=== PATIENT | female | born 1940 | race Caucasian/White ===

== ENCOUNTER 2018-06-10 18:05 | Outpatient (REF) | payer MEDICARE, OTHER, SELFPAY ==
[2018-06-10 19:33] LABS: Anion Gap 8.3 mmol/L (3-11); BUN 24 mg/dL (7-18); CO2 28.7 mmol/L (21.0-32.0); CREATININE 0.82 mg/dL (0.55-1.02); Calcium 9.3 mg/dL (8.5-10.1); Chloride 104 mmol/L (98-107); Glucose 250 mg/dL (70-100); Potassium 4.3 mmol/L (3.5-5.1); Sodium 141 mmol/L (136-145); TSH 3.09 uIU/mL (0.358-3.74)
== END 2018-06-10 18:25 ==
LOC: NCHCN 18:05
PROVIDERS: Visit Provider Nurse Practitioner Family
DX: E03.9 Hypothyroidism, unspecified (principal); E11.65 Type 2 diabetes mellitus with hyperglycemia
CPT/HCPCS: 80048; 84443

== ENCOUNTER 2019-02-28 09:38 | Emergency (ER) | payer MEDICARE, OTHER, SELFPAY ==
[2019-02-28] VITALS (24 sets, daily range): BP systolic 133–170; BP diastolic 69–116; PULSE 78–95; RESP 13–24; TEMP 36.6–37.1; O2SAT 92–97
--- NOTE | 2019-02-28 09:44 | DI.RAD_ITS ---
EXAM: XR CHEST 2V PA LATERAL INDICATION: Confusion. COMPARISON: No exams were available for comparison TECHNIQUE: 2D digital imaging was performed. 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 There is mild cardiomegaly. Lungs are generally clear and well expanded. No pleural effusion seen. IMPRESSION: No evidence of acute process.
--- NOTE | 2019-02-28 09:49 | NUR.NOTE ---
Nursing Note: pt to ct
--- NOTE | 2019-02-28 09:49 | ED.GENADUL_ITS ---
Discharge Plan Disposition Patient Disposition: HOME Condition: Improving Discharge Details Chief Complaint: AMS/LOC Clinical Impression: Urinary tract infection, Acute dehydration Primary Care Provider: Unknown,Unknown ED Provider: Anthony Guerra Home Meds and New Rx's Prescriptions: New cephalexin 500 mg capsule 500 mg PO TID 7 Days Qty: 21 RF: 0 Continued metformin 850 mg Tablet 850 mg PO BID RF: 0 glipizide 2.5 mg Tablet Extended Release 24hr 2.5 mg PO BID RF: 0 levothyroxine [Synthroid] 112 mcg Tablet 112 mcg PO DAILY RF: 0 Discharge Instructions Instructions: Urinary Tract Infection in Women (ED) Additional Instructions: We will ask our care management team to make urine a follow-up appointment at [place] [facility]. Take antibiotics as prescribed. Continue your regular medications. Return to the any time for reevaluation if you have acute concerns. Home to rest today. Small, frequent sips of fluids to maintain hydration. Medical Decision Making 78-year-old female with day 3 of general confusion that worsened this morning. She presented via EMS from her home in [place]. She arrives afebrile with a pulse of 81, blood pressure 133/77, interactive and pleasant but confused. She does have questionable expressive aphasia, otherwise nonfocal neurologic exam. She does have history of mood disorder in the past. Normal vital signs a temp 36 pulse 81 respirations 18 blood pressure 133/77. Differential diagnosis includes metabolic derangement, dehydration, urinary tract, must exclude acute stroke and patient referred for CT scan of the head which is unremarkable. Urine is notable for glucose 500. She also has mixed cells including bacteria. As above, she had complained of burning with urination to her over the past [address] scan of the head unremarkable for acute process. Patient also underwent MRI which is normal without evidence of infarct. Following fluids, observation, the patient is improved. She requested discharge to home. Discussed admission for further observation with patient and her . They declined this at this time. As she was symptomatic of UTI we will treat her with a course of oral antibiotic. She will follow-up with her primary care in [place] for recheck. Lab Data Lab results reviewed: Yes I reviewed the patient's lab results. Labs: Laboratory Results - last 24 hr 02/28/19 02/28/19 02/28/19 09:49 09:55 09:55 WBC 4.99 RBC 4.56 Hgb 14.0 Hct 41.7 MCV 91.4 MCH 30.7 MCHC 33.6 RDW 13.5 Plt Count 121 L MPV 11.0 Immature Gran % 0.4 Neutrophils % 65.4 Lymphocytes % 22.6 Monocytes % 8.4 Eosinophils % 2.6 Basophils % 0.6 Absolute Neutrophils 3.26 Absolute Lymphocytes 1.13 L Absolute Monocytes 0.42 Absolute Eosinophils 0.13 Absolute Basophils 0.03 Sodium 137 Potassium 4.1 Chloride 101 Carbon Dioxide 25.3 Anion Gap 10.7 BUN 22 H Creatinine 0.94 Estimated GFR/1.73 m2 57.44 Glucose 242 H Calcium 9.1 Magnesium 1.9 Total Bilirubin 0.6 AST 18 ALT 21 Alkaline Phosphatase 65 Troponin I < 0.05 Total Protein 8.1 Albumin 3.9 TSH Cancelled 12.92 H ECG Data Attestation: I personally reviewed and interpreted this ECG (s) as follows: Interpretation: Normal sinus rhythm with a rate of 81, the QRS is narrow, W[place] interval unremarkable, no significant ST segment changes noted. HPI General Mode of arrival: EMS . Date/Time Provider Initiated Documentation: 02/28/19 09:44 . Limitations to Documentation: no limitations . Information obtained by: patient, family and EMS . History of Present Illness 78 year old F presents to the emergency department with the chief complaint of Presents via EMS with her . 2 to 3 days of confusion, worse this am, described as moderate, Quality is described as constant, Patient started experiencing this day(s) and it has been constant. No relieving factors improve symptom(s), No exacerbating factors reported . Patient notes no other symptoms.; denies chest pain, cough, fever/chills and syncope. Patient did receive the following treatments prior to arrival, none Related Data Home Medications Medication Instructions Recorded Confirmed cephalexin 500 mg PO TID 7 Days #21 cap 02/28/19 glipizide 2.5 mg PO BID 02/28/19 02/28/19 levothyroxine [Synthroid] 112 mcg PO DAILY 02/28/19 02/28/19 metformin 850 mg PO BID 02/28/19 02/28/19 Previous Rx's Medication Instructions Recorded cephalexin 500 mg PO TID 7 Days #21 cap 02/28/19 Allergies Allergy/AdvReac Type Severity Reaction Status Date / Time No Known Allergies Allergy Unverified 02/28/19 11:00 Review of Systems Review of Systems Narrative: No fever, fall, recent illness. No chest pain. Recent burning with urination. 6 systems reviewed and otherwise negative [facility] Social History Smoking/Tobacco Use Status: Unknown Substance use type: unknown Additional Social history: unable to assess Exam Narrative Exam Narrative: GEN: awake, alert, pleasant, interactive, confused. HEAD: Normocephalic, atraumatic ENT: Mucous membranes moist, oropharynx unremarkable, External ear exam unremarkable EYES: PERRL, EOMI NECK: Full ROM, no OLGA, no menigismus CHEST/RESP: Nontender, clear to auscultation bilateral, no wheeze/rhonchi/rales CARDIOVASCULAR: RRR, no murmur, rub ji. 2+ Rad pulse bilateral ABDOMEN: Soft, nontender, no mass. +Bowel sounds EXT: Full ROM, no edema, no rash Neuro: Grossly normal neurologic exam, conversant, interactive but confused. Psych: Speech nonfluent
--- NOTE | 2019-02-28 10:02 | DI.CT_ITS ---
EXAM: CT HEAD - STROKE PROTOCOL CLINICAL HISTORY: confusion, ? expressive aphasia. TECHNIQUE: COMPARISON: No exams were available for comparison FINDINGS: Noncontrast cranial CT was performed. There is mild generalized cerebral atrophy and there are mild patchy areas of decreased attenuation in periventricular white matter consistent with microvascular i schemic change. No evidence of acute intracranial hemorrhage mass effect or midline shift. Paranasal sinuses and mastoid air cells are clear as visualized. The orbital and temporal bone struc tures appear intact. IMPRESSION: No evidence of acute intracranial process.
[2019-02-28 10:04] LABS: Abs Immature Grans 0.02 k/cumm (0.0-0.09); Absolute Basophil Count 0.03 k/cumm (0.0-0.2); Absolute Eosinophil Count 0.13 k/cumm (0.0-0.7); Absolute Lymphocyte Count 1.13 k/cumm (1.2-3.4); Absolute Monocyte Count 0.42 k/cumm (0.11-0.7); Absolute Neutrophil Count 3.26 k/cumm (1.2-6.7); Basophils % 0.6; Eosinophils % 2.6; HCT 41.7 % (36.0-46.0); Immature Grans % 0.4; Lymphocytes % 22.6; Mean Corp. HGB Concentration 33.6 g/dL (32.0-36.0); Mean Corpuscular Hemoglobin 30.7 pg (27.0-33.0); Mean Corpuscular Volume 91.4 fL (80-95); Monocytes % 8.4; Neutrophils % 65.4; Platelet Count 121 x1000/uL (130-400); RBC 4.56 m/cumm (4.00-5.20); RBC Distribution Width 13.5 % (11.7-14.6); White Blood Cell Count 4.99 k/cumm (4.4-10.8)
[2019-02-28 10:29] LABS: ALT 21 U/L (14-59); AST 18 U/L (15-37); Albumin 3.9 g/dL (3.4-5.0); Alkaline Phosphatase 65 U/L (46-116); Anion Gap 10.7 mmol/L (3-11); BUN 22 mg/dL (7-18); Bilirubin, Total 0.6 mg/dL (0.2-1.0); CO2 25.3 mmol/L (21.0-32.0); CREATININE 0.94 mg/dL (0.55-1.02); Calcium 9.1 mg/dL (8.5-10.1); Chloride 101 mmol/L (98-107); Estimated GFR 57.44 (mL/min/1.73m2); Glucose 242 mg/dL (70-100); Magnesium 1.9 mg/dL (1.8-2.4); Potassium 4.1 mmol/L (3.5-5.1); Sodium 137 mmol/L (136-145); TSH 12.92 uIU/mL (0.36-3.74); Total Protein 8.1 g/dL (6.4-8.2)
[2019-02-28 10:30] LABS: Troponin I < 0.05 ng/mL (0.00-0.06)
[2019-02-28] MEDS: Normal Saline 1,000 ML 1000 ML IV (10:30)
[2019-02-28] MEDS: Ondansetron 4 MG/2 ML VIAL ×2 (10:30→12:13)
[2019-02-28 10:43] LABS: Bilirubin Negative (Negative); Blood Trace-intact (Negative); Clarity Clear (Clear); Glucose 500 mg/dL (Negative); Ketones 40 mg/dL (Negative); Leukocyte Esterase Negative (Negative); Nitrite Negative (Negative); Specific Gravity 1.015 (1.005-1.025); Urobilinogen 0.2 EU/dL (Up TO 0.2); pH 5.5 (5-8)
[2019-02-28 11:00] LABS: Bacteria Few HPF (Negative); C & S Indicated? No; Casts Negative LPF (Negative); Crystals Negative HPF (Negative); Epithelial Cells Few HPF (Negative); Mucus Negative (Negative); WBC 0-2 HPF (0-5)
[2019-02-28 11:21] LABS: FREE T4 0.98 ng/dL (0.76-1.46)
--- NOTE | 2019-02-28 11:26 | NUR.NOTE ---
Nursing Note: Unable to obtain IV access, additional assistance requested.
--- NOTE | 2019-02-28 12:53 | DI.MRI_ITS ---
EXAM: MR BRAIN WO CLINICAL HISTORY: confusion, ? expressive aphasia. TECHNIQUE: Multiplanar multisequence MRI was performed. COMPARISON: No exams were available for comparison FINDINGS: There is moderate generalized cerebral atrophy and there are multiple areas of abnormal signal in the periventricular white matter consistent with microvascular ischemic change. No other significant si gnal abnormality identified in the brain. The orbital and temporal bone structures appear intact. T here is normal flow void in Ehphcj-an-Bjqkhk vasculature. Diffusion weighted imaging shows no eviden ce of infarction. Susceptibility weighted imaging shows no evidence of intracranial hemorrhage. IMPRESSION: Findings consistent with atrophy and microvascular ischemic change. No acute process.
[2019-02-28] MEDS: Cephalexin 500 MG CAP PO (14:07)
--- NOTE | 2019-02-28 14:59 | NUR.NOTE ---
Nursing Note: pt able to ambulate to car without difficulty.
== END 2019-02-28 15:02 | disposition home or self-care (01) ==
PROVIDERS: Emergency Provider Emergency Medicine
DX: N39.0 Urinary tract infection, site not specified (principal); E86.0 Dehydration
CPT/HCPCS: 36415; 80053; 93005; 96360; 99285; 70450; 70551; 71046; 81003; 81015; 83735; 84439; 84443; 84484; 85025; 93010; 99284; J2405

== ENCOUNTER 2019-03-19 15:32 | Outpatient (REF) | payer MEDICARE, OTHER, SELFPAY ==
[2019-03-19 21:04] LABS: Hemoglobin A1C 10.3 % (4.5-6.2)
[2019-03-19 21:15] LABS: BUN 20 mg/dL (7-18); CREATININE 0.93 mg/dL (0.55-1.02); Calcium 9.2 mg/dL (8.5-10.1); Chloride 100 mmol/L (98-107); Estimated GFR 58.16 (mL/min/1.73m2); Glucose 322 mg/dL (70-100); Potassium 4.2 mmol/L (3.5-5.1); Sodium 138 mmol/L (136-145); TSH 4.98 uIU/mL (0.36-3.74)
== END 2019-03-19 15:52 ==
LOC: NCHCN 15:32
PROVIDERS: Visit Provider Nurse Practitioner Family
DX: E11.65 Type 2 diabetes mellitus with hyperglycemia (principal)
CPT/HCPCS: 80048; 83036; 84443

== ENCOUNTER 2019-04-22 14:25 | Outpatient (REF) | payer MEDICARE, OTHER, SELFPAY ==
[2019-04-22 21:06] LABS: BUN 15 mg/dL (7-18); NT-proBNP 90 pg/mL (<300); TSH 21.21 uIU/mL (0.36-3.74)
== END 2019-04-22 14:45 ==
LOC: NCHCN 14:25
PROVIDERS: PCP Nurse Practitioner Family; Visit Provider Nurse Practitioner Family
DX: R06.02 Shortness of breath (principal); R01.1 Cardiac murmur, unspecified; E03.9 Hypothyroidism, unspecified
CPT/HCPCS: 84520; 82565; 83880; 84443

== ENCOUNTER 2019-05-02 09:51 | Emergency (ER) | payer MEDICARE, OTHER, SELFPAY ==
[2019-05-02 09:58] VITALS: BP 140/70; PULSE 91; RESP 16; TEMP 36.6; O2SAT 97
--- NOTE | 2019-05-02 10:10 | ED.GENADUL_ITS ---
Discharge Plan Disposition Patient Disposition: HOME Discharge Details Chief Complaint: Orthopedic Clinical Impression: Closed fracture of left proximal humerus Primary Care Provider: Thalia Granda ED Provider: Pablo Hester Home Meds and New Rx's Prescriptions: New meloxicam 7.5 mg tablet 7.5 mg PO DAILY Qty: 30 RF: 0 Continued metformin 850 mg Tablet 850 mg PO BID RF: 0 levothyroxine [Synthroid] 112 mcg Tablet 150 mcg PO DAILY RF: 0 furosemide [Lasix] 20 mg Tablet 20 mg PO PRN PRNRF: 0 Discharge Instructions Instructions: Proximal Humerus Fracture (ED) Additional Instructions: Please keep arm in sling and follow-up with orthopedics. Take meloxicam as prescribed. Please take acetaminophen (tylenol) - 650mg every 6 hours by mouth as needed for pain. Please contact your primary care physician to arrange follow-up. Return to the ER for any worsening or new concerning symptoms. Referrals: Ernesto Ferrell MD [ [facility] STAFF PHYSICIAN] - Discharge Data Discharge Date/Time-TO BE ENTERED AT DEPARTURE: 05/02/19 11:01 Medical Decision Making 10:15 --78-year-old female presents with left shoulder pain and swelling after fall on ice last night. Tender and swollen proximal humerus. Concern for proximal humeral fracture. Consider rib fracture as she has had some discomfort on deep inspiration left lateral upper chest. Plan to obtain chest x-ray and x-ray of the left shoulder. 10:42 --x-ray of the left shoulder reviewed and interpreted by me: Proximal humerus fracture. Chest x-ray was interpreted by radiology: No acute cardiopulmonary process. Patient was placed in sling and advised to follow-up with orthopedics. Patient placed on orthopedic follow-up list. Usual and customary discharge instructions were provided. HPI General Mode of arrival: ambulatory . Date/Time Provider Initiated Documentation: 05/02/19 09:57 . Limitations to Documentation: no limitations . Information obtained by: patient and family . HPI Narrative: 78-year-old female presents with chief complaint of left shoulder pain. Patient notes she slipped on ice last night and fell from one step to the ground landing on her left shou lder. She is had pain in her shoulder since the fall. Pain is moderate and worse with any movement of her shoulder. She notes shoulder feels weak. She also hit her left chest and does have some discomfort when she takes a deep inspiration. She denies hip pain. She did not hit her head. No loss of consciousness. No neck or back pain. Related Data Home Medications Medication Instructions Recorded Confirmed levothyroxine [Synthroid] 150 mcg PO DAILY 02/28/19 05/02/19 metformin 850 mg PO BID 02/28/19 05/02/19 furosemide [Lasix] 20 mg PO PRN PRN 05/02/19 05/02/19 meloxicam 7.5 mg PO DAILY #30 tab 05/02/19 Previous Rx's Medication Instructions Recorded meloxicam 7.5 mg PO DAILY #30 tab 05/02/19 Allergies Allergy/AdvReac Type Severity Reaction Status Date / Time No Known Allergies Allergy Unverified 02/28/19 11:00 General Stated Complaint: Orthopedic GARRICK: 4 Review of Systems Cardiovascular Cardiovascular: Denies dyspnea Respiratory Respiratory: Denies dyspnea Musculoskeletal Musculoskeletal: Reports as per HPI Integumentary/Breasts Skin/Breast: Reports other (abrasion left knee) [facility] Social History Smoking/Tobacco Use Status: Never Alcohol Intake: never Drug use: Never Substance use type: does not use Do you feel safe at home: Yes Do you feel safe in your relationship?: Yes Exam Const General: cooperative and no acute distress HENMT Head: normocephalic and atraumatic Mouth: moist mucous membranes Neck Neck: trachea midline and supple Resp Auscultation: clear to auscultation bilaterally, no rales, no rhonchi and no wheezes Cardio Jugular venous pressure: no JVD Rate: regular rate and not tachycardic Rhythm: regular rhythm Pulses: radial pulses present on the left 2+ GI Palpation: soft, not firm, not rigid and nontender Skin Trauma: abrasion (superficial left knee) Neuro General: alert, awake and tone normal Other: Distal left upper extremity sensation and motor intact Extrem General: no edema Left upper extremity: shoulder/upper arm Details: tenderness Location: of the proximal humerus, swelling Location: of the proximal humerus, axillary nerve sensory function normal and abnormal ROM Details: held in an abnormal fashion Details: in ADduction and pain with passive ROM Details: in ABduction Left lower extremity: knee Details: normal ROM; no tenderness and no swelling Course Vital Signs Vital signs: Vital Signs Temperature 36.6 C 05/02/19 09:58 Pulse 91 H 05/02/19 09:58 Respiratory Rate 16 05/02/19 09:58 Blood Pressure 140/70 05/02/19 09:58 Pulse Oximetry 97 05/02/19 09:58 Temperature 36.6 C 05/02/19 09:58 Temperature Source Temporal Artery Scan 05/02/19 09:58 Pulse 91 H 05/02/19 09:58 Respiratory Rate 16 05/02/19 09:58 Respiratory Effort Non-Labored 05/02/19 09:58 Blood Pressure 140/70 05/02/19 09:58 Pulse Oximetry 97 05/02/19 09:58 Oxygen Delivery Method Room Air 05/02/19 09:58 Oxygen Flow Rate 0 05/02/19 09:58
[2019-05-02] MEDS: Ibuprofen 600 MG TAB PO (10:14)
[2019-05-02] MEDS: Acetaminophen 325 MG TAB 650 MG PO (10:14)
--- NOTE | 2019-05-02 10:18 | DI.RAD_ITS ---
EXAM: XR SHOULDER LT COMPLETE 2+V CLINICAL HISTORY: pain, fall TECHNIQUE: COMPARISON: No exams were available for comparison FINDINGS: Three views were obtained. There is a moderately comminuted fracture of the proximal humerus with mo derate displacement. Humeral head is subluxed inferiorly at the glenohumeral joint but there is no f rank dislocation. No other fracture identified. IMPRESSION:
--- NOTE | 2019-05-02 10:26 | DI.RAD_ITS ---
EXAM: XR CHEST 1V IN DI DEPT CLINICAL HISTORY: left rib pain, fall from standing TECHNIQUE: COMPARISON: XR CHEST 2V PA LATERAL from 02/28/2019 XR SHOULDER LT COMPLETE 2+V from 05/02/2019 FINDINGS: Heart is not enlarged. Lungs are clear. No pleural effusion seen on this frontal film. There appea rs to be a large retrocardiac hiatus hernia. Note is made of proximal left humeral fracture as noted radiographs of the shoulder. Humeral head ap pears subluxed inferiorly. IMPRESSION: No evidence of acute intrapulmonary process.
== END 2019-05-02 11:01 | disposition home or self-care (01) ==
LOC: ER 11:14
PROVIDERS: Emergency Provider Student in an Organized Health Care Education/Training Program; PCP Nurse Practitioner Family
DX: S42.202A Unspecified fracture of upper end of left humerus, initial encounter for closed fracture (principal); R07.81 Pleurodynia; W00.0XXA Fall on same level due to ice and snow, initial encounter
CPT/HCPCS: 23600; 99284; 71045; 73030; 99282; L3650

== ENCOUNTER 2019-05-14 10:02 | Outpatient (CLI) | payer MEDICARE, OTHER, SELFPAY ==
--- NOTE | 2019-05-14 10:22 | DI.RAD_ITS ---
EXAM: XR SHOULDER LT COMPLETE 2+V INDICATION: f/u. COMPARISON: XR SHOULDER LT COMPLETE 2+V from 05/02/2019 TECHNIQUE: 2D digital imaging was performed. FINDINGS: There has been no significant change in alignment of the proximal left humeral fracture since 9. No new fracture or dislocation is present.
== END 2019-05-14 10:22 ==
PROVIDERS: PCP Nurse Practitioner Family; Visit Provider Student in an Organized Health Care Education/Training Program
DX: S42.202A Unspecified fracture of upper end of left humerus, initial encounter for closed fracture (principal); W10.9XXA Fall (on) (from) unspecified stairs and steps, initial encounter
CPT/HCPCS: 99203; 99214; 73030

== ENCOUNTER 2019-06-11 10:46 | Outpatient (CLI) | payer MEDICARE, OTHER, SELFPAY ==
--- NOTE | 2019-06-11 10:12 | DI.RAD_ITS ---
EXAM: XR SHOULDER LT COMPLETE 2+V INDICATION: L prox humerus fx. COMPARISON: XR CHEST 1V IN DI DEPT from 05/02/2019 XR SHOULDER LT COMPLETE 2+V from 05/02/2019 TECHNIQUE: 2D digital imaging was performed. FINDINGS: There has been some interval increased healing of the comminuted fracture of the humeral head. There is inferior subluxation of the humeral head with respect to the glenoid, unchanged.
== END 2019-06-11 11:06 ==
PROVIDERS: PCP Nurse Practitioner Family; Referring Provider Nurse Practitioner Family; Visit Provider Orthopaedic Surgery
DX: S42.202D Unspecified fracture of upper end of left humerus, subsequent encounter for fracture with routine healing (principal); X58.XXXD Exposure to other specified factors, subsequent encounter
CPT/HCPCS: 99213; 73030

== ENCOUNTER 2019-07-03 12:19 | Inpatient (IN) | payer MEDICARE, OTHER, SELFPAY ==
[2019-07-03] VITALS (32 sets, daily range): BP systolic 111–174; BP diastolic 68–94; PULSE 78–101; RESP 13–28; TEMP 36.6–37; O2SAT 92–99
--- NOTE | 2019-07-03 12:41 | W.ED.GENAD ---
Discharge Plan Disposition Patient Disposition: [facility] INPATIENT Condition: Serious Discharge Details Chief Complaint: CVA/TIA Clinical Impression: Acute CVA (cerebrovascular accident) Admit Date/Time: 07/03/19 15:46 Admit Provider: Lakhwinder Amador Attending Provider: Lakhwinder Amador Primary Care Provider: Thalia Granda ED Provider: Molly Anglin Discharge Instructions Activity:: Activity as Tolerated Equipment/Supplies:: No Equipment Needed Diet:: Carb Counting Discharge Orders Discharge Orders: Discharge Order (Routine); Ordered 07/05/19 Ordered By: Marie Mendoza Discharge Data Discharge Date/Time-TO BE ENTERED AT DEPARTURE: 07/03/19 16:45 Medical Decision Making Patient is a RHD 78 year old female presenting today with c/c of right hand weakness. States that she awoke this morning and had difficulty pushing herself to a standing position with the right arm to get out of bed. She states that she then had difficulty eating as she did not have the dexterity to hold a fork. She denies any altered sensation. No neck pain. No trauma. No pain in the extremity. No headache. Her reports that he felt that her gait was off slightly which patient did not report noticing. He states that typically she walks with the house very well unassisted. Patient denies any chest pain, shortness of breath. Reports overall feeling quite well but continues to notice this weakness particularly doing fine motor movements of the right hand, NIH score of 1 based on the ataxia in the right upper extremity. Patient is having difficulty with finger-nose and all fine motor movements with the right. She has no pronator drift on the side, no sensory deficits. Proximal muscles are strong on the side. EKG was obtained and reviewed by Dr. Hester. Patient's in sinus tachycardia with a rate of 102. No acute ischemic changes are noted. Patient will be sent over from [place] stroke protocol as well as CTA of head and neck. Consulted with Dr. Martinez, he reviewed CT and CTA. No acute abnormalities noted. CXR without acute abnormality. Labs reviewed, significant for glucose of 310. On review of labs, this is baseline for the patient. Reviewed note from primary care. Patient does have history of hypertension, pedal edema, heart murmur, type 2 diabetes poorly controlled, hypothyroidism, chronic low back pain. Will consult with Dr. Hayes. She advised beginning the patient on aspirin. Advised patient will need admission for continued evaluation with MRI, echo continue monitoring. Discussed this plan with the patient was in agreement. Consulted the hospitalist who agrees to admission for CVA. HPI General Mode of arrival: wheelchair. Date/Time Provider Initiated Documentation: 07/03/19 12:29. Limitations to Documentation: no limitations. Information obtained by: patient, family () and RN notes reviewed. History of Present Illness 78 year old F presents to the emergency department with the chief complaint of right arm weakness, described as moderate (deficit with fine motor in right hand), and is localized to the right and upper extremity. Patient started experiencing this hour(s) (awoke with symptoms at 0800) and it has been constant. No relieving factors improve symptom(s), No exacerbating factors reported . Patient notes weakness; denies chest pain, cough, diaphoresis, fever/chills, headaches, loss of appetite, nausea/vomiting, rash and shortness of breath. Patient did receive the following treatments prior to arrival, none Related Data Home Medications Medication Instructions Recorded Confirmed levothyroxine [Synthroid] 150 mcg PO DAILY 02/28/19 07/03/19 metformin 850 mg PO BID 02/28/19 07/03/19 furosemide [Lasix] 20 mg PO PRN PRN 05/02/19 07/03/19 meloxicam 7.5 mg PO DAILY #30 tab 05/02/19 07/03/19 aspirin 81 mg PO DAILY #30 tab 07/05/19 atorvastatin [Lipitor] 40 mg PO QPM #15 tab 07/05/19 Previous Rx's Medication Instructions Recorded meloxicam 7.5 mg PO DAILY #30 tab 05/02/19 aspirin 81 mg PO DAILY #30 tab 07/05/19 atorvastatin [Lipitor] 40 mg PO QPM #15 tab 07/05/19 Allergies Allergy/AdvReac Type Severity Reaction Status Date / Time No Known Allergies Allergy Unverified 07/03/19 12:28 General Stated Complaint: CVA/TIA GARRICK: 2 Review of Systems Constitutional Constitutional: Reports as per HPI, Denies chills, Denies fatigue, Denies fever(s), Denies frequent falls, Denies headache(s), Denies snoring and Denies weakness Eyes Eyes: Reports as per HPI, Denies blurry vision, Denies change in vision and Reports photophobia ENT Ears, Nose, Mouth, and Throat: Denies vertigo, Denies headache(s) and Denies neck pain Cardiovascular Cardiovascular: Reports as per HPI, Denies chest pain, Denies lightheadedness, Denies radiating jaw, neck or arm pain, Denies dyspnea and Denies dyspnea on exertion Respiratory Respiratory: Reports as per HPI, Denies chest congestion, Denies cough, Denies dyspnea, Denies dyspnea on exertion, Denies snoring, Denies stridor and Denies wheezing Gastrointestinal Gastrointestinal: Reports as per HPI, Denies abdominal pain, Denies change in bowel habits, Denies nausea and Denies vomiting Musculoskeletal Musculoskeletal: Reports as per HPI, Denies back pain, Denies myalgias, Denies muscle cramps, Denies neck pain and Denies numbness Integumentary/Breasts Skin/Breast: Reports as per HPI and Denies rash Neurologic Neurologic: Reports as per HPI, Denies abnormal movements, Denies abnormal speech, Denies behavioral changes, Denies confusion, Denies vertigo, Denies frequent falls, Denies headache(s), Denies focal weakness, Denies numbness, Denies sensory deficit and Denies weakness Psychiatric Psychiatric: Denies behavioral changes and Denies confusion Endocrine Endocrine: Denies fatigue Allergic/Immunologic Allergic/Immunologic: Denies wheezing [facility] Medical History Diabetes type 2, controlled (Acute) Fracture of proximal humerus (Acute 05/01/19) Hypothyroidism (Chronic) Social History Smoking/Tobacco Use Status: Never Alcohol Intake: never Drug use: Never Substance use type: does not use Current gender identity: female Do you feel safe at home: Yes Do you feel safe in your relationship?: Yes Exam Const General: cooperative, healthy appearing, uncomfortable, no acute distress, well developed and well groomed Nutritional Appearance: average body habitus and well nourished Orientation: alert, awake and oriented x3 HENMT Head: normal to inspection, no palpable skull fracture, normocephalic and atraumatic Ears: hearing grossly normal bilaterally, external ears normal and TM's normal bilaterally General nose exam: external nose normal Mouth: oral mucosae normal and moist mucous membranes Throat: posterior oropharynx normal Eyes General: appearance normal, both eyes and all related structures Alignment and Position: alignment normal Periorbital: periorbital findings normal Eyelids: eyelids normal Sclera: sclerae normal Cornea: corneas normal Pupils: PERRL EOM: EOM intact bilaterally Neck Neck: normal visual inspection, full ROM, no lymphadenopathy and no meningeal signs Resp Effort & Inspection: normal respiratory effort, able to speak in complete sentences and no respiratory distress Auscultation: clear to auscultation bilaterally, no rales, no rhonchi and no wheezes Cardio Rate: regular rate Rhythm: regular rhythm Heart Sounds: S1 normal and S2 normal GI Inspection: normal to inspection and non-distended Palpation: soft, no hepatosplenomegaly, not firm, no guarding, not rigid and nontender Percussion: normal to percussion Auscultation: normal bowel sounds Back/Spine/Pelvis Cervical Spine: normal cervical lordosis and cervical ROM normal Skin General skin exam: no rashes or lesions noted Neuro General: alert, awake and oriented x3 Cranial Nerves: CN's II-XI intact bilaterally Cognition: normal cognition Speech: speech normal Gait: normal gait Motor: muscle tone normal throughout, strength 5/5 throughout, no pronator drift, no movement abnormalities noted and no fasciculations Sensory Exam: no sensory deficits noted DTR's: Rt Triceps: 2+, Lt Triceps: 2+, Rt Biceps: 2+, Lt Biceps: 2+, Rt Brachioradialis: 2+, Lt Brachioradialis: 2+, Rt Patellar: 2+, Lt Patellar: 2+, Rt Ankle: 2+ and Lt Ankle: 2+ Plantar Reflexes: Downgoing: bilateral Coordination: [id number] test abnormal (unable to complete on the right side) and [id number] test normal Extrem General: normal to inspection, normal capillary refill, no pedal edema and no calf tenderness Psych Appearance: grossly normal and well kempt Mental Status: mental status grossly normal Speech and Movement: speech and movement normal Course Vital Signs Vital signs: Vital Signs Temperature 36.6 C 07/03/19 12:23 Pulse 99 H 07/03/19 12:23 Respiratory Rate 16 07/03/19 12:23 Blood Pressure 156/81 H 07/03/19 12:23 Pulse Oximetry 98 07/03/19 12:23 Temperature 36.6 C 07/03/19 12:23 Temperature Source Skin 07/03/19 12:23 Pulse 99 H 07/03/19 12:23 Respiratory Rate 16 07/03/19 12:23 Respiratory Effort 07/03/19 12:40 Blood Pressure 156/81 H 07/03/19 12:23 Pulse Oximetry 98 07/03/19 12:23 Oxygen Delivery Method Room Air 07/03/19 12:23 Oxygen Flow Rate 0 07/03/19 12:23 Pain Level 0 07/03/19 12:23
[2019-07-03 12:56] LABS: Abs Immature Grans 0.01 k/cumm (0.0-0.09); Absolute Basophil Count 0.02 k/cumm (0.0-0.2); Absolute Eosinophil Count 0.18 k/cumm (0.0-0.7); Absolute Monocyte Count 0.47 k/cumm (0.11-0.7); Absolute Neutrophil Count 3.51 k/cumm (1.2-6.7); Basophils % 0.4; Eosinophils % 3.3; HCT 40.5 % (36.0-46.0); HGB 13.3 g/dL (12.0-15.5); Immature Grans % 0.2 %; Lymphocytes % 23.7; Mean Corp. HGB Concentration 32.8 g/dL (32.0-36.0); Mean Corpuscular Volume 91.4 fL (80-95); Mean Platelet Volume 10.9 fL (8.0-11.0); Monocytes % 8.6; Neutrophils % 63.8; Platelet Count 150 x1000/uL (130-400); RBC 4.43 m/cumm (4.00-5.20); RBC Distribution Width 13.2 % (11.7-14.6); White Blood Cell Count 5.49 k/cumm (4.4-10.8)
[2019-07-03 13:05] LABS: Prothrombin Time 9.7 sec (9.3-11.0)
--- NOTE | 2019-07-03 13:06 | DI.CT_ITS ---
EXAM: CT BRAIN NECK CTA CLINICAL HISTORY: RUE weakness, awoke with symptoms TECHNIQUE: COMPARISON: No exams were available for comparison FINDINGS: Preliminary noncontrast cranial CT shows no evidence of acute intracranial hemorrhage, mass effect, o r midline shift. There is mild generalized cerebral atrophy. The orbital and temporal bone structur es appear intact. CT angiography of cervical cranial region was performed with intravenous infusion of 100 cc of Omnipa que 350 visualized lung apices are clear. Visualized aortic arch and pulmonary arterial circulation unremarkable. There is mild atheromatous calcified plaque in the carotid bifurcations and proximal i nternal carotid arteries bilaterally, no evidence of stenosis. Otherwise internal carotid arteries e xtra cranially appear normal. Intracranially the internal carotid arteries show mild atheromatous calcified plaque in the cavernous portions without significant stenosis. No evidence of aneurysm or dissection. Vertebral arteries and basilar artery appear normal with no evidence stenosis, aneurysm, or dissectio n. Anterior, middle, and posterior cerebral arteries are unremarkable with no evidence of aneurysm, sten osis, or dissection. Left posterior cerebral artery is supplied mainly across the posterior communicating artery. IMPRESSION: No evidence of acute intracranial process. Essentially negative craniocervical CT a with minimal ath eromatous plaque noted in the carotid bifurcations and cavernous portions of the internal carotid art eries bilaterally.
[2019-07-03 13:12] LABS: ALT 24 U/L (14-59); AST 17 U/L (15-37); Albumin 3.8 g/dL (3.4-5.0); Alkaline Phosphatase 93 U/L (46-116); Anion Gap 6.9 mmol/L (3-11); BUN 22 mg/dL (7-18); Bilirubin, Total 0.4 mg/dL (0.2-1.0); CO2 31.1 mmol/L (21.0-32.0); CREATININE 0.85 mg/dL (0.55-1.02); Calcium 8.8 mg/dL (8.5-10.1); Chloride 102 mmol/L (98-107); Glucose 310 mg/dL (74-106); Magnesium 1.8 mg/dL (1.8-2.4); Potassium 4.1 mmol/L (3.5-5.1); Sodium 140 mmol/L (136-145)
--- NOTE | 2019-07-03 13:15 | DI.RAD_ITS ---
EXAM: XR CHEST 2V PA LATERAL CLINICAL HISTORY: CVA TECHNIQUE: COMPARISON: XR CHEST 1V IN DI DEPT from 05/02/2019 FINDINGS: The heart is not enlarged. There is retrocardiac hiatal hernia. Lungs appear clear. No pleural eff usion. IMPRESSION: No evidence of acute intrapulmonary process.
[2019-07-03 13:19] LABS: Troponin I < 0.05 ng/Ml (<0.06)
[2019-07-03] MEDS: Omnipaque 350 MG/ML 100 ML BTL 85 ML IJ (13:20)
[2019-07-03] MEDS: Normal Saline - Diluent 50 ML VIAL IV (13:21)
[2019-07-03] MEDS: Aspirin 325 MG TAB PO (14:49)
[2019-07-03 15:04] LABS: Bilirubin Negative (Negative); Blood Large (Negative); Glucose Negative (Negative); Ketones Negative (Negative); Leukocyte Esterase Negative (Negative); Nitrite Negative (Negative); Urobilinogen 0.2 EU/dL (Up TO 0.2); pH 6.5 (5-8)
[2019-07-03 15:07] LABS: Clarity Sl Cloudy (Clear)
[2019-07-03 15:27] LABS: Bacteria Negative HPF (Negative); C & S Indicated? No; Casts Negative LPF (Negative); Crystals Negative HPF (Negative); Epithelial Cells Rare HPF (Negative); Mucus Negative (Negative); Other Cells Rare Renal (Negative); RBC >50 HPF (0-2); WBC 0-2 HPF (0-5)
[2019-07-03 16:01] LABS: Troponin I < 0.05 ng/Ml (<0.06)
--- NOTE | 2019-07-03 17:00 | W.NEUROCONSU ---
Date of service: 07/03/19 Time of Service: 17:00 Assessment and Plan Assessment and plan (1) Ataxia of right upper extremity: Status: Acute Assessment and plan: Ms. Hughes is a 78 year-old, right-handed woman with a PMH of diabetes who was admitted for: #1. Right arm ataxia with subjective paraesthesias. The concern is for an ischemic stroke. -Check MRI brain w/o -Check TTE with bubble study -Continue telemetry -Check A1c and lipid panel -Continue aspirin 81mg daily for stroke prevention -Start atorvastatin 40mg daily for stroke prevention -Needs OT History of Present Illness History of Present Illness Chief Complaint: ?stroke Narrative: Handedness: right. HPI: Ms. Hughes is a 78 year-old woman with a PMH of type 2 diabetes, hypothyroidism, a recent left humeral fracture, and reported history of mood disorder. She woke this morning around 8am with right hand and arm clumsiness. She describes it as if the arm is not under her control. At the same time, she also describes numbness and tingling in the hand. Both symptoms have improved over time, but continue to persist. Her BP was 156/81. No afib on EKG/tele. She denies any history of palpitations/flutters. She had a CTA head and neck which I was able to review. There is no significant stenosis but she does have a bit of plaque in the carotid bulbs bilaterally. She was seen in the ER in Feb 2019 with AMS attributed to dehydration and a UTI. She underwent a brain MRI at that time which I was also able to review. There were no acute findings with mild cerebral atrophy and chronic white matter changes. She is not on any antiplatelets. Consults Requesting physician: Lakhwinder Amador Review of Systems All systems reviewed & are unremarkable except as noted in HPI and below PFSH Medical History Diabetes type 2, controlled (Acute) Fracture of proximal humerus (Acute 05/01/19) Hypothyroidism (Chronic) Social History Smoking/Tobacco Use Status: Never Alcohol Intake: never Drug use: Never Substance use type: does not use Current gender identity: female Do you feel safe at home: Yes Do you feel safe in your relationship?: Yes Visit Medication and Allergies Active Medications Generic Name Dose Route Start Last Admin Trade Name Freq PRN Reason Stop Dose Admin IV Miscellaneous Supplies 1 each 07/03/19 12:45 IV DIRECTED DARVIN IV Miscellaneous Supplies 1 each 07/03/19 16:00 IV DIRECTED DARVIN Iohexol 85 ml 07/03/19 13:30 07/03/19 13:20 Omnipaque 350 IJ 08/02/19 23:59 85 ml DIRECTED DARVIN Administration Sodium Chloride 0 ml 07/03/19 12:41 Saline Flush 10 Ml Syringe IVP PRN PRN Sodium Chloride 50 ml 07/03/19 13:30 07/03/19 13:21 Saline 50 Ml Diluent Vial IV 50 ml .FOR DI USE DARVIN Administration Sodium Chloride 0 ml 07/03/19 15:46 Saline Flush 10 Ml Syringe IVP PRN PRN Allergies No Known Allergies Allergy (Unverified 07/03/19 12:28) Exam Narrative Exam Narrative: Physical Exam: Gen: Patient of apparent stated age, NAD Head and face: no facial or cranial abnormalities Neck: Supple, no meningismus, no occipital tenderness CV: RRR, no murmur Resp: CTA B/L Abd: soft, nontender, nondistended Ext: Mild bilateral LE edema. No clubbing or cyanosis. No bony deformity. Neuro Exam: Language: fluency, naming, repetition, and comprehension intact; Mental Status: AAOx3, current events intact, fund of knowledge intact; wandering attention Speech: no dysarthria Cranial nerves: Funduscopy: not performed CN II: visual ghosh intact CN III, IV, : extraocular movements intact, no nystagmus, pupils symmetric and reactive to light CN V: face sensation intact to LT and PP CN VII: no facial asymmetry noted CN VIII: hearing intact bilaterally CN IX, X: palate rises symmetrically CN XI: trapezius/SCM 5/5 bilaterally CN XII: protrudes tongue symmetrically Sensory: intact to LT, PP and joint position in all extremities; reduced vibration in the toes bilaterally; Motor: bulk and tone intact. Fine motor movements reduced bilaterally. No pronator drift on the right (left not tested due to recent fracture). Strength 5/5 throughout the RUE and bilateral LE including the deltoids, biceps, triceps, wrist extensors, hip flexors, knee flexors, knee extensors, ankle flexors, and ankle extensors. LUE not tested due to recent fracture. Reflexes: 2+ at the biceps, triceps, and brachioradialis; absent at the patella and achilles tendons bilaterally; toes neutral bilaterally; Coordination: FTN with mild RUE ataxia; HTS intact bilaterally Gait: deferred Results Last Vital Signs Temp 36.7 C 07/03/19 16:52 Pulse 82 07/03/19 16:52 Resp 16 07/03/19 16:52 BP 148/80 H 07/03/19 16:52 Pulse Ox 97 07/03/19 16:52 Labs Result diagrams: 07/03/19 12:40 07/03/19 12:40 Labs: Laboratory Results - last 24 hr 07/03/19 07/03/19 07/03/19 12:40 12:40 12:40 WBC 5.49 RBC 4.43 Hgb 13.3 Hct 40.5 MCV 91.4 MCH 30.0 MCHC 32.8 RDW 13.2 Plt Count 150 MPV 10.9 Immature Gran % 0.2 Neutrophils % 63.8 Lymphocytes % 23.7 Monocytes % 8.6 Eosinophils % 3.3 Basophils % 0.4 Absolute Neutrophils 3.51 Absolute Lymphocytes 1.30 Absolute Monocytes 0.47 Absolute Eosinophils 0.18 Absolute Basophils 0.02 PT 9.7 INR 1.0 Sodium 140 Potassium 4.1 Chloride 102 Carbon Dioxide 31.1 Anion Gap 6.9 BUN 22 H Creatinine 0.85 Estimated GFR/1.73 m2 >= 60.00 Glucose 310 H Calcium 8.8 Magnesium 1.8 Total Bilirubin 0.4 AST 17 ALT 24 Alkaline Phosphatase 93 Troponin I < 0.05 Total Protein 8.0 Albumin 3.8 Urine Color Urine Clarity Urine pH Ur Specific [place] Urine Protein Urine Ketones Urine Blood Urine Nitrite Urine Bilirubin Urine Urobilinogen Ur Leukocyte Esterase Urine RBC Urine WBC Ur Epithelial Cells Urine Crystals Urine Bacteria Urine Casts Urine Mucus Urine Other Ur Culture Indicated? Urine Glucose 07/03/19 07/03/19 14:37 15:40 WBC RBC Hgb Hct MCV MCH MCHC RDW Plt Count MPV Immature Gran % Neutrophils % Lymphocytes % Monocytes % Eosinophils % Basophils % Absolute Neutrophils Absolute Lymphocytes Absolute Monocytes Absolute Eosinophils Absolute Basophils PT INR Sodium Potassium Chloride Carbon Dioxide Anion Gap BUN Creatinine Estimated GFR/1.73 m2 Glucose Calcium Magnesium Total Bilirubin AST ALT Alkaline Phosphatase Troponin I < 0.05 Total Protein Albumin Urine Color Yellow Urine Clarity Sl cloudy Urine pH 6.5 Ur Specific [place] 1.020 Urine Protein Negative Urine Ketones Negative Urine Blood Large H Urine Nitrite Negative Urine Bilirubin Negative Urine Urobilinogen 0.2 Ur Leukocyte Esterase Negative Urine RBC >50 H Urine WBC 0-2 Ur Epithelial Cells Rare Urine Crystals Negative Urine Bacteria Negative Urine Casts Negative Urine Mucus Negative Urine Other Rare renal Ur Culture Indicated? No Urine Glucose Negative
--- NOTE | 2019-07-03 18:08 | W.PM.HP.N ---
Date of service: 07/03/19 Time of Service: 18:09 Assessment and Plan Assessment and plan (1) Ataxia of right upper extremity: Status: Acute Assessment and plan: Appears to be a cerebrovascular event. She is high risk for cardioembolic stroke. Will place on telemetry. Obtain MRI of the brain without contrast in the a.m. Check echocardiogram with bubble study. We will get a lipid panel check hemoglobin A1c start atorvastatin 80 mg nightly and aspirin 81 mg daily. (2) Diabetes type 2, controlled: Status: Acute Assessment and plan: Blood sugars are high on admission. We will hold the metformin because of dye studies pending. Will place on correction bolus insulin and adjust accordingly. History of Present Illness History of Present Illness Chief Complaint: CVA/right hand ataxia Narrative: 78-year-old woman who woke this morning with right hand ataxia. She says she went to throw the covers off the bed and her hand was not working correctly. She could not hold a cup of coffee. Her noticed that her gait was unstable and she seemed to list to the left. In the emergency room her [id number] testing was abnormal on the right. She went on to have a CT angiogram of the head and neck that was normal. She got started on aspirin. Dr. Carrion saw her from neurology. Review of Systems Narrative: Patient feels she is overall in pretty good health. She is very cautious about falling. She fell April 2019 and fractured her left proximal humerus. She had an episode of altered mental status in February 2019. She otherwise is active and denies any previous cardiac history. No pulmonary problems. [facility] Medical History (Updated 07/03/19 @ 18:12 by Lakhwinder Amador MD) Altered mental status (Acute ~02/2019) Diabetes type 2, controlled (Acute) Fracture of proximal humerus (Acute 05/01/19) Hypothyroidism (Chronic) Social History Smoking/Tobacco Use Status: Never Alcohol Intake: never Drug use: Never Substance use type: does not use Current gender identity: female Do you feel safe at home: Yes Do you feel safe in your relationship?: Yes Meds Home Medications and Allergies Home Medications Medication Instructions Recorded Confirmed Type levothyroxine [Synthroid] 150 mcg PO DAILY 02/28/19 07/03/19 History metformin 850 mg PO BID 02/28/19 07/03/19 History furosemide [Lasix] 20 mg PO PRN PRN 05/02/19 07/03/19 History meloxicam 7.5 mg PO DAILY #30 tab 05/02/19 07/03/19 Rx Allergies Allergy/AdvReac Type Severity Reaction Status Date / Time No Known Allergies Allergy Unverified 07/03/19 12:28 Exam Narrative Exam Narrative: Very pleasant alert and in no apparent distress. Cognitive functioning appears to be normal. She shows no evidence of facial asymmetry. Speech is clear. Thought processes appear normal. 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 There does not appear to be any overall weakness or discoordination. She moves both lower extremities without decrement of function. Heart sounds are regular there is no murmur. Lungs are completely clear on the right and left. Abdomen is soft nontender no HSM is detected. The lower extremities are warm and well perfused. Results Imaging Additional studies: CTA HEAD /NECK CLINICAL HISTORY: RUE weakness, awoke with symptoms TECHNIQUE: COMPARISON: No exams were available for comparison FINDINGS: Preliminary noncontrast cranial CT shows no evidence of acute intracranial hemorrhage, mass effect, or midline shift. There is mild generalized cerebral atrophy. The orbital and temporal bone structures appear intact. CT angiography of cervical cranial region was performed with intravenous infusion of 100 cc of Omnipaque 350 visualized lung apices are clear. Visualized aortic arch and pulmonary arterial circulation unremarkable. There is mild atheromatous calcified plaque in the carotid bifurcations and proximal internal carotid arteries bilaterally, no evidence of stenosis. Otherwise internal carotid arteries extra cranially appear normal. Intracranially the internal carotid arteries show mild atheromatous calcified plaque in the cavernous portions without significant stenosis. No evidence of aneurysm or dissection. Vertebral arteries and basilar artery appear normal with no evidence stenosis, aneurysm, or dissection. Anterior, middle, and posterior cerebral arteries are unremarkable with no evidence of aneurysm, stenosis, or dissection. Left posterior cerebral artery is supplied mainly across the posterior communicating artery. IMPRESSION: No evidence of acute intracranial process. Essentially negative craniocervical CT a with minimal atheromatous plaque noted in the carotid bifurcations and cavernous portions of the internal carotid arteries bilaterally. CXR FINDINGS: The heart is not enlarged. There is retrocardiac hiatal hernia. Lungs appear clear. No pleural effusion. IMPRESSION: No evidence of acute intrapulmonary process. Labs Result diagrams: 07/03/19 12:40 07/03/19 12:40 Labs: Laboratory Results - last 24 hr 07/03/19 07/03/19 07/03/19 12:40 12:40 12:40 WBC 5.49 RBC 4.43 Hgb 13.3 Hct 40.5 MCV 91.4 MCH 30.0 MCHC 32.8 RDW 13.2 Plt Count 150 MPV 10.9 Immature Gran % 0.2 Neutrophils % 63.8 Lymphocytes % 23.7 Monocytes % 8.6 Eosinophils % 3.3 Basophils % 0.4 Absolute Neutrophils 3.51 Absolute Lymphocytes 1.30 Absolute Monocytes 0.47 Absolute Eosinophils 0.18 Absolute Basophils 0.02 PT 9.7 INR 1.0 Sodium 140 Potassium 4.1 Chloride 102 Carbon Dioxide 31.1 Anion Gap 6.9 BUN 22 H Creatinine 0.85 Estimated GFR/1.73 m2 >= 60.00 Glucose 310 H Calcium 8.8 Magnesium 1.8 Total Bilirubin 0.4 AST 17 ALT 24 Alkaline Phosphatase 93 Troponin I < 0.05 Total Protein 8.0 Albumin 3.8 Urine Color Urine Clarity Urine pH Ur Specific [place] Urine Protein Urine Ketones Urine Blood Urine Nitrite Urine Bilirubin Urine Urobilinogen Ur Leukocyte Esterase Urine RBC Urine WBC Ur Epithelial Cells Urine Crystals Urine Bacteria Urine Casts Urine Mucus Urine Other Ur Culture Indicated? Urine Glucose 07/03/19 07/03/19 14:37 15:40 WBC RBC Hgb Hct MCV MCH MCHC RDW Plt Count MPV Immature Gran % Neutrophils % Lymphocytes % Monocytes % Eosinophils % Basophils % Absolute Neutrophils Absolute Lymphocytes Absolute Monocytes Absolute Eosinophils Absolute Basophils PT INR Sodium Potassium Chloride Carbon Dioxide Anion Gap BUN Creatinine Estimated GFR/1.73 m2 Glucose Calcium Magnesium Total Bilirubin AST ALT Alkaline Phosphatase Troponin I < 0.05 Total Protein Albumin Urine Color Yellow Urine Clarity Sl cloudy Urine pH 6.5 Ur Specific [place] 1.020 Urine Protein Negative Urine Ketones Negative Urine Blood Large H Urine Nitrite Negative Urine Bilirubin Negative Urine Urobilinogen 0.2 Ur Leukocyte Esterase Negative Urine RBC >50 H Urine WBC 0-2 Ur Epithelial Cells Rare Urine Crystals Negative Urine Bacteria Negative Urine Casts Negative Urine Mucus Negative Urine Other Rare renal Ur Culture Indicated? No Urine Glucose Negative Last Vital Signs Temp 36.7 C 07/03/19 16:52 Pulse 82 07/03/19 16:52 Resp 16 07/03/19 16:52 BP 148/80 H 07/03/19 16:52 Pulse Ox 97 07/03/19 16:52
[2019-07-03] MEDS: Pravastatin 20 MG TAB 80 MG PO (19:53)
[2019-07-04 00:23] VITALS: BP 147/77; PULSE 95; RESP 18; TEMP 36.7; O2SAT 95
[2019-07-04 03:47] VITALS: BP 148/75; PULSE 92; RESP 18; TEMP 36.3; O2SAT 96
[2019-07-04] MEDS: Levothyroxine 150 MCG TAB PO (06:43)
[2019-07-04 07:23] VITALS: BP 145/82; PULSE 86; RESP 18; TEMP 36.1; O2SAT 95
[2019-07-04 07:50] LABS: Hemoglobin A1C 8.5 % (3.8-5.6)
[2019-07-04 07:51] LABS: Calculated LDL 116 mg/dL (<100); Cholesterol 186 mg/dL (<200); HDL Cholesterol 49 mg/dL (40-60); Triglyceride 106 mg/dL (<150)
[2019-07-04] MEDS: Aspirin E.C. 81 MG TABEC PO (08:12)
[2019-07-04] MEDS: Insulin Aspart 300 UNITS/3 ML PEN SC ×3 (08:21→17:44)
--- NOTE | 2019-07-04 09:00 | DI.US_ITS ---
APPROVED REPORT EXAM: Comprehensive 2D, Doppler, and color-flow Echocardiogram Patient Location: In-Patient Environmental Field Services Technician: Yumiko Wright RDCS (AE) Rhythm: NSR Indications: CVA Echo Enhancing Agent Indication: CVA, ? cardioembolic Agent(s) / Amount(s) Used: Agitated Saline 30.0 cc Comments: LUIS Carroll pushed bubbles per hospital policy/ protcol through existing 20G iv in RAC. guru ent consented to bubble study. bubbles ordered by DR. Amador. Conclusion Left Ventricle : The left ventricle is normal size. The left ventricular systolic function is normal . The left ventricular ejection fraction is within the normal range. Asymmetric septal thickening is noted. The posterior wall thickness is normal. The septal thickness is moderately increased. There is normal LV segmental wall motion. There is evidence of impaired relaxation. LVEF is estimated to be 6 5-70%. Right Ventricle : The right ventricle is normal size. The right ventricular systolic function appears normal. Atria : The left atrium size is normal. The right atrium size is normal. Saline bubble contrast intra venous injection does not demonstrate PFO. Aortic Valve : Aortic valve is trileaflet. There is focal annular sclerosis No aortic regurgitation i s present. There is no aortic valvular stenosis. Mitral Valve : The mitral valve is normal in structure. There is no mitral valve regurgitation noted. No evidence of mitral valve stenosis. Tricuspid Valve : The tricuspid valve is not well visualized. Trace tricuspid regurgitation. Great Vessels : IVC is normal in size and collapses >50% with inspiration. Estimated RVSP is 15-18 m mHg. There is no prior echocardiogram available for comparison. Wall motion Left Ventricle The left ventricle is normal size. The left ventricular systolic function is normal. The left ventric ular ejection fraction is within the normal range. Asymmetric septal thickening is noted. The posteri or wall thickness is normal. The septal thickness is moderately increased. There is normal LV segment al wall motion. There is evidence of impaired relaxation. LVEF is estimated to be 65-70%. Right Ventricle The right ventricle is normal size. The right ventricular systolic function appears normal. Atria The left atrium size is normal. The right atrium size is normal. Saline bubble contrast intravenous i njection does not demonstrate PFO. Aortic Valve Aortic valve is trileaflet. There is focal annular sclerosis There is no aortic valvular stenosis. No aortic regurgitation is present. Mitral Valve The mitral valve is normal in structure. No evidence of mitral valve stenosis. There is no mitral janine ve regurgitation noted. Tricuspid Valve The tricuspid valve is not well visualized. Trace tricuspid regurgitation. Pulmonic Valve Pulmonic valve is not well visualized. Trace to mild pulmonic regurgitation. Great Vessels The aortic root is mildly dilated. The ascending aorta size is mildly dilated. IVC is normal in size and collapses >50% with inspiration. Estimated RVSP is 15-18 mmHg. Pericardium There is no pericardial effusion. 2D Dimensions IVSd 1.30 cm F: 0.6-1.0 LV EDV A2C 66.3 mL PWd 0.90 cm F: 0.6 - 1.0 LV EDV A4C 25.2 mL LVDd 3.90 cm F: 3.8 - 5.2 LA Area A4C 18.19 cm2 LVDs 2.25 cm F: 2.2 - 3.5 EF AP4 67.9 % Aortic Root 3.55 cm F: 2.7 - 3.3 EF AP2 82.1 % RA Area A4C 15.73 cm2 EF BP 76.3 % LVOT 2.00 cm (M/F) 1.5-2.5 IVC 1.87 cm Ascending Aorta 3.30 cm F: 2.3 - 3.1 TAPSE 1.96 cm (M/F) <1.7 LVEF (Teich) 73.9 % LVEF (Blake's) 76.29 % F: 54 - 74 LV Volume 32.56 mL F: 46 - 106 LV Volume Index 16.87 mL/m2 F: 29 - 61 FS 42.25 % LV Diastology MV E' medial 0.045 (>0.07 m/s) E/A Ratio 0.7 LV E/e MED 13.65 (<14) TR Peak Velocity 1.96 m/s MV E' lateral 0.055 (>0.1 m/s) LV E/e LAT 11.20 (<14) LA vol/ BSA A4C s A-L 26.7 mL/m2 Aortic Valve LVOT Area 3.17 cm2 AoV Area Vmax 2.00 cm2 LVOT Vmax 1.03 m/s AoV Area/ BSA (Vmax) 1.03 cm2/m2 LVOT Mean Darnell. 0.78 m/s ROYAL Mean Darnell. 2.19 cm2 LVOT Peak Gr. 4.2 mmHg ROYAL Mean Darnell. Index 1.13 cm2/m2 LVOT Mean Gr. 2.6 mmHg LVOT VTI 0.205 m AoV Vmax 1.63 (0.5-1.3 m/s) AoV Mean Darnell. 1.13 m/s AoV Peak Grad 10.6 mmHg LVOT SV 65.00 mL AoV Mean Grad 5.7 (<5 mmHg) AoV VTI 0.305 (0.18-0.25 m) AoV Area VTI 2.13 (2.5-4.5 cm2) AoV Area/ BSA (VTI) 1.10 cm/m2 Mitral Valve MV E Max Darnell. 0.62 (0.4-1.3 m/s) RVOT Peak Gr. 2.74 mmHg MV A Velocity 0.90 (0.4-1.3 m/s) RVOT Mean Gr. 1.90 mmHg E/A Ratio 0.68 MV Decel. Time 127 (160-240 msec) MV PHT 37 msec MVA PHT 5.95 cm2 PV Peak Velocity 1.12 (0.5-1.5 m/s) RVOT Peak Darnell. 0.83 m/s RVOT VTI 0.133 m Tricuspid Valve TR P. Gradient 15.2 mmHg TV Regurg Vmax 1.96 m/s RAP Estimate 3.00 mmHg RVSP 18.3 mmHg
[2019-07-04] MEDS: Normal Saline Flush 10 ML SYR IVP (09:56)
--- NOTE | 2019-07-04 10:10 | PT.INIE ---
Date of service: 07/04/19 Time of Service: 08:18 PT Notes Visit Reasons: Cerebrovascular accident Physical Therapy Inpatient Initial Evaluation Date: 07/04/2019 Referring Doctor: Lakhwinder Amador M.D. PT Orders: PT CONSULT: Fall Safety Assessment; CVA? Precautions: Fall. Standard. Activity as tolerated. Patient Profile/Admitting Diagnosis: Pt is a 78-year-old female that presented to the ER on 07/02/2019 for ataxia of her right upper extremity. She was admitted for ataxia of the right upper extremity and diabetes mellitus type II. PMHX: Medical History (Updated 07/03/19 @ 18:12 by Lakhwinder Amador MD) Altered mental status (Acute ~02/2019) Diabetes type 2, controlled (Acute) Fracture of proximal humerus (Acute 05/01/19) Hypothyroidism (Chronic) Social History/Home Situation: Pt lives at home with her , Timmy. One step into the breeze way and one step up into the house. There are two steps into the kitchen. Notes there are 14 steps down to the cellar where her laundry room is. She states is the one that does the laundry in the house and has to be able to get into the cellar. Equipment Owned/DME: cane Subjective: Pt reports that she is feeling much better today than she was three days ago. She states that she came to the hospital yesterday because her right hand was very shaky and she had spilled her coffee which has resolved. Notes that she no longer has any tingling in her right fingers. Denies difficulty swallowing. She reports only having one fall in the past 12 months, on 2018. Fell onto her left side and fractured the ?ball? of her upper arm. She states she believes she had also broken a rib during that fall because she had been bruised along her side. Per OT, the pt cares for her with Parkinson?s disease. Objective: General Observation: Telemonitor in place. Mental Status: alert and oriented x4 Pain: 0/10 ROM: Right Upper Extremity: Shoulder Flexion WFL. Shoulder abduction WFL. Elbow flexion WFL. Wrist flexion WFL. Opening and closing of hand WFL. Left Upper Extremity: Shoulder Flexion 30-40 degrees and painful AROM. Shoulder abduction WFL. Elbow flexion WFL. Wrist flexion WFL. Opening and closing of hand WFL. Right Lower Extremity: Hip flexion WFL. Hip abduction WFL. Knee flexion WFL. Ankle dorsiflexion WFL. Ankle plantarflexion WFL. Left Lower Extremity: Hip flexion WFL. Hip abduction WFL. Knee flexion WFL. Ankle dorsiflexion WFL. Ankle plantarflexion WFL. Strength: Right Upper Extremity: Shoulder flexors 5/5. Shoulder abductors 5/5. Elbow flexors 5/5. Elbow extensors 5/5. Security Control Assessor strong. Left Upper Extremity: Shoulder flexors 2+/5. Shoulder abductors 5/5. Elbow flexors 5/5. Elbow extensors 5/5. Security Control Assessor strong. Right Lower Extremity: Hip flexors 5/5. Hip abductors 5/5. Knee flexors 5/5. Knee extensors 5/5. Ankle dorsiflexors 5/5. Ankle plantarflexors 5/5. Left Lower Extremity: Hip flexors 5/5. Hip abductors 5/5. Knee flexors 5/5. Knee extensors 5/5. Ankle dorsiflexors 5/5. Ankle plantarflexors 5/5. Sensation: Intact as to pain and pressure on bilateral lower extremities. Bed Mobility/Transfers: Rolling independent Supine to sit independent Sit to supine independent Sit to stand supervision Stand to sit supervision Bed to chair supervision Chair to bed supervision Gait: Pt was able to ambulate 15 feet without the use of an assistive device, full weightbearing. Supervision provided by PT and PT student. Reciprocal gait pattern. Unremarkable. Balance: Static Sitting: Normal Dynamic Sitting: Normal Static Standing: Good Dynamic Standing: Good Coordination: Pt was able to perform [id number]-wy-[id number], olmd-tw-antrbvn-finger, hdis-nh-qmrs, and slow, alternating movement without difficulty. No ataxia of the right upper extremity observed during PT evalaution. Special Tests: Mobility Limitations Standardized Measure [facility]-PAC 6 clicks Basic Mobility Inpatient Short Form: Raw Score: 23% CMS Score: 11% deficit Four-Stage Balance Test: Pt was able to maintain feet together for greater than 15 seconds, but unable to progress any further with testing without loss of balance. Informed Consent/Education: Patient instructed in purpose of PT consult and plan of care. Assessment: Pt is a 78-year-old female that presented to the ER on 07/02/2019 for ataxia of her right upper extremity. She was admitted for ataxia of the right upper extremity and diabetes mellitus type II. Pt presents with impairment level findings and functional limitations as listed below. She demonstrated adequate coordination bilaterally with no apparent ataxia of the right upper extremity observed. Strength and sensation appear to be intact bilaterally. Patient presents with clinical signs and symptoms consistent with current/admitting diagnoses that have resulted to mobility limitations, gait instability, and generalized weakness as demonstrated by the following impairment level findings: 1. Decreased strength to L UE shoulder major muscle groups 2. Impaired standing balance 3. Impaired activity tolerance 4. Limitation of joint range of motion in left shoulder Impairments are contributing to the following functional limitations: 1. Increased dependence with transfers 2. Inability to safely ambulate without assistive device and physical assistance 3. Increase completion time for mobility ADL performance 4. Increased fall risk 5. Inability to negotiate steps alone safely Patient is assessed as a 47878 moderate complexity based on the following: History: Pt is a 78-year-old female that presented to the ER on 07/02/2019 for ataxia of her right upper extremity. She was admitted for ataxia of the right upper extremity and diabetes mellitus type II. Presents with impairment level findings and functional limitations as listed above. Examination: Demonstrable impairment in strength, balance, and range of motion with underlying impairments and functional limitations as documented above Presentation: Evolving Decision Makin moderate complexity Goals: Goals X1 week 1. Sit-Stand independent 2. Stand-Sit independent 3. Bed-Chair independent 4. Chair-Bed independent 5. Independent gait on level surface with use of least restrictive device for at least 300 feet without report of pain nor dyspnea 6. Independent stair negotiation while holding onto bilateral rails for at least 15 steps without report of pain nor dyspnea 7. Independent with home exercise program 8. Good static and dynamic standing balance/tolerance Plan of Care/Treatment Plan: 1-2x/day, 7 days/week x 1 week. Plan of care has been reviewed with the PEDIATRIC OCCUPATIONAL THERAPIST providing the service under Physical Therapy direction. Initiate Physical Therapy intervention for strengthening, bed mobility, transfers, gait, stairs, balance training, use of assistive device. DISCHARGE RECOMMENDATIONS: Discharge to home with cane to assist with balance when ambulating. Recommend outpatient physical therapy for remaining impairments of left shoulder. TREATMENT CODE/TIME: 45479 x 22 minutes beginning at 8:18 A.M. Thank you very much for this referral. Yanira Branch, SPT Doctor of Physical Therapy Student [facility] Supervision provided by Alma Rosa Gould PT, DPT, CLT [facility] [place], [place]
--- NOTE | 2019-07-04 11:06 | OT.INIE ---
Occupational Therapy Notes Inpatient Occupational Therapy Evaluation Date: 07/04/19 Referring Doctor:Lakhwinder Amador MD OT Orders: Urgent- Fall Safety Assessment Precautions: Fall, Standard PATIENT PROFILE/ADMITTING DIAGNOSIS: Pt is a 78 year old female who was admitted through the ER on 07/03/19 for CVA/TIA, (R) hand weakness, Ataxia (R) UE and DM 2. Past Medical History: (Updated 07/03/19 @ 18:12 by Lakhwinder Amador MD) Altered mental status (Acute ~02/2019) Diabetes type 2, controlled (Acute) Fracture of proximal humerus (Acute 05/01/19) Hypothyroidism (Chronic) Social History/Home Situation: [place] lives [place] with her who she takes care of. She states that she is (I) at baseline and he relies on her for driving, meals, laundry, (A) with his ADLs/IADLs and taking care of the home. She states that she does not have any services in the home and feels that she was (I) even with proximal (L) humeral fx. She is not receptive to services at this time. She states that they have a sone who lives in [place]. She has a home there and a storage shed with more of her stuff. Her was a handicrafts teacher and she (A) him for many years. Her laundry is in her basement and she states that she has 14 steps. Equipment owned/DME: Shower chair, raised toilet, grab bars. SUBJECTIVE: Pt was sitting in bed when OT arrived. She was agreeable to OT session and very emotional about this happening to her. She states that she had a humeral fx in April which she is seeing Dr. Vizcarra. She states that she has no formal rehab services for this. She lives in [place] and states that she is the caregiver for her . She is emotional that she cannot be cared for her role is to care for others. She is worried about her and feels that she needs to get better. She states that she is worried about her stuff and needs to go through it but has not been able to find motivation to do so. OBJECTIVE: General Observation: Pleasant and emotional, IV (L) UE not connected. Mental Status: A&Ox3 Pain: c/o pain in (L) proximal humerus ROM: RUE AROM WFL L UE Shoulder flexion limited to 90* due to proximal humeral fx from recent fall, elbow WNL, hand/digits and wrist WNL STRENGTH: RUE Shoulder flexion 4/5, bicep 4-/5, tricep 4/5, administrative support assistant is strong (R) > (L) LUE Shoulder flexion 2+/5, bicep 3+/5, tricep 3+/5, administrative support assistant is strong (R) > (L) SENSATION: Intact per pt report in (B) UE. FUNCTIONAL MOBILITY/ADLS: Transfers Supine-sit Min (A) Sit-supine Min (A) Sit-Stand (I) Stand-sit (S) with LOB Bed-Chair (S) Chair-bed (S) with LOB BATHING Sitting on side of bed pt denies performance of bathing routine reporting she is leaving and will shower at home. OT did assess pt functional ROM for performance of bathing which she was able to demonstrate with good technique. She required education of functional safety and not leaning over to quickly. DRESSING Dressing LE Sitting on side of bed with min vc for leg placement able to (I) don and doff (B) socks with good technique. GROOMING Sitting on side of bed (I) with brushing hair, denies teeth at sink TOILETING On toilet LOB when sitting, (I) with toilet hygiene EATING NT BALANCE: Static sitting Normal Dynamic Sitting Normal Static Standing Normal Dynamic Standing Good SPECIAL TESTS: Daily Activity Limitations Standardized Measure [facility] AM -PAC ?6 clicks? Daily Activity Inpatient Short Form: Raw score: 21 Standardized score: 44.27 CMS score: 32.79% INFORMED CONSENT/EDUCATION: Pt instructed in purpose of OT Consult and plan of care. ASSESSMENT: Patient is a 78-year-old female referred to occupational therapy services with diagnosis of CVA/TIA with (R) hand weakness, Ataxia (R) UE, DM 2. Patient presents with clinical signs and symptoms consistent with dx, as demonstrated by the following impairment level findings/functional limitations: Decreased (R) UE strength and weakness, decreased (L) UE due to proximal humeral fx on , LOB when transitioning to sitting, decreased standing tolerance and functional activity tolerance, decreased gross and fine motor control of (L) UE. [facility] score 21 Patient is assessed as a Moderate 18440 complexity based on the following: History: See Above Examination: See functional limitations as noted above Presentation: Evolving Decision Making: AMPAC score 21 GOALS Goals x1 week 1. Transfers LRD (I) 2. Dressing (I) sitting in chair 3. Bathing (I) in shower for UE/LE 4. Toileting (I) on toilet 5. Eating (I) PLAN OF CARE/TREATMENT PLAN: 1x/day, 5 days/ week x 1week Initiate Occupational Therapy Services for bathing, dressing, grooming, toileting, eating, transfer training. DISCHARGE RECOMMENDATIONS Home with services when medically cleared per MD. TREATMENT TIME/MINUTES/CODES 33205, 52004, 40 minutes (07:30) Sharron Thorne OTR/L [facility] [place]
[2019-07-04 11:10] VITALS: BP 143/76; PULSE 90; RESP 17; TEMP 36.6; O2SAT 97
--- NOTE | 2019-07-04 12:14 | PHARADMIT ---
Admission Pharmacy Clinical Review CVA Code Status Full Code Current Weight Wgt-82.5 kg Renally Cleared and Narrow Therapeutic Index Meds CrCl~ 52.1 mL/min Meds-OK QTc Value / Action Taken QTC-458 NA BP Control, Fever BP- 143/76 Tmax- 37.0C Electrolytes reviewed Na-140 K+4.1 Mag- 1.8 DVT Prophylaxis ASA-ec Opiate Usage / Scheduled Bowel Regimen Ordered No Yes Plt/SCr for Heparin / Enoxaparin Plts-150 SCr-0.85 INR for Warfarin inr-1.0 H/H stable, WBC/Bands H&H- 13.3/40.5 WBC- 5.49 Antibiotic appropriateness none Cultures and Sensitivities none Surgical ABX d/c within 24 hr na DM control / Insulin Dosing BG-310 HgA1c- 8.5% Aspart Heart Failure (Check EF%) (ANNA's, B-Block, Diuretics) none IV to PO Switch No Home Meds Reviewed Yes Home Meds Not Ordered Metformin-Held due IV Contrast, Lasix, Meloxicam Comments
--- NOTE | 2019-07-04 12:35 | DI.MRI_ITS ---
EXAM: MR BRAIN WO CLINICAL HISTORY: CVA, right hand ataxia. TECHNIQUE: Multiplanar multisequence MRI was performed. COMPARISON: No exams were available for comparison FINDINGS: MR examination of brain was performed according usual protocol. There is moderate generalized cerebr al atrophy. Periventricular regions of abnormal signal sparing corpus callosum are consistent with m icrovascular ischemic changes. Diffusion-weighted imaging shows questionable very tiny gyral abnorma l signal left parietal, ADC map does not confirm tiny infarct but this could be below the limit of re solution of the ADC map. No other signal abnormality identified in the brain. Some susceptibility w eighted imaging shows no evidence of hemorrhage. There is normal flow void in the [id number]-Ijqsjb v asculature. The orbital and temporal bone structures appear intact. Pituitary appears intact. IMPRESSION: Cerebral atrophy and microvascular ischemic changes. Question miniscule indeterminate area of abnorm al gyral signal high left parietal a could represent small focus of infarction but is not confirmed o n ADC map.
--- NOTE | 2019-07-04 15:17 | CHAPLAIN ---
Ana was talking with Dr. Amador when I stopped in. She is concerned about what she needs to take care of herself because her Souleymane has Parkinson's and she will need to be caring for him eventually. She was teary at times, saying that she knows she needs to prioritize things in he life and she will do whatever she needs to do to deal with her sugar. She seems to have a very determined and discipline approach, although she later told me that it is her who is very disciplined because of his background. She and her met in high school in [place]. He is a java architect. 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 They retired to [place]. This is the second time that Ana has been to [facility] with neurological issues and this is concerning to Ana. She said she felt comfortable talking with Dr. Amador and sharing her concerns with him. She prefers coming to [facility], even thought she lives in [place].
--- NOTE | 2019-07-04 15:18 | PT.INTREAT ---
Date of service: 07/04/19 Time of Service: 15:18 PT Notes Visit Reasons: Cerebrovascular accident 07/04/19 SUBJECTIVE: Ana stating she is feeling significantly better. She has resolves right hand tingling and weakness. She notes she is usually very active but less so since her proximal humerus fracture this past . 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 She notes that she has a cane and a walker at home if necessary. She is receptive to PT in the home so she knows how to become more active. OBJECTIVE: Seated in her chair. Agreeable to PT treatment. TRANSFERS Sit to stand: S Stand to sit: S GAIT Device: SPC Weight bearing: Full Assist: S Distance: 100'x2 STAIRS: Up and down 3-4 steps, 2-6 steps, step over pattern, bilateral rails, S only. THEREX: Instruct pt in HEP for LE strengthening exercises as noted below. 1. HR x 10 2. Sit to stand: x 10 3. LAQ x 10 4. Seated march x 10 5. Standing march x 10 each 6. Hip abduction standing x 10 ASSESSMENT: Tolerates PT well today. She normally does not utilize an assistive device but she felt comfortable with a single point cane today until she feels stronger. She is motivated to get stronger and be more active at home. PLAN: Continue per POC. Treatment time: 30 minutes [id number], [id number] Janelle London PTA
[2019-07-04 15:27] VITALS: BP 142/71; PULSE 87; RESP 18; TEMP 36.6; O2SAT 95
--- NOTE | 2019-07-04 16:01 | W.NUTRFU ---
Date of service: 07/04/19 Time of Service: 16:01 Nutritional Follow up NOTE: Dm consult received. CDE to follow up. Time Spent in Nutritional Counseling and Treatment: 0 time spent face to face
--- NOTE | 2019-07-04 17:50 | PDOC.CMIN ---
Care Management Initial Assess REASON FOR HOSPITALIZATION:: CVA PAST MEDICAL HISTORY/PAST SURGICAL HISTORY:: Diabetes type 2 controlled, Apr 2019 fracture of L proximal humerus, hypothyroidism PREVIOUS FUNCTIONAL STATUS/SOCIAL/FAMILY SUPPORTS:: Ana resides in [place], [place] with her of fifty four years, Timmy Comer. 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 Ana reports their three children reside out of state but her son who lives in [place] comes up every week. She reports having one grandchild in [place]. She reports that Souleymane has Parkinsons and is beginning to decline. He remains busy with a project on the computer. Ana reports having a good natural support system locally and resources when needed. CURRENT FUNCTIONAL STATUS:: Ana was sitting up in the chair, she was weepy when discussing end of life decisions and dealing with her brother, father's and her and Souleymane's estate as well as where she would like to reside ([place]) when Souleymane passes. She shares fears that he will not live another year as he is losing weight and unable to tolerate much food. CM reviews Palliative Care and community based supports, Ana reports feeling confident in knowing how to outreach for additional supports when the time comes. Ana was pleasant in interaction and forthcoming with information. ADVANCE DIRECTIVES:: None on file at [facility]. Has patient been provided with information about the portal?: No Did the patient sign up for the portal?: No CODE STATUS:: Full Code INSURANCE COVERAGE / FINANCIAL ISSUES:: Medicare. [employer] CURRENT HOME/COMMUNITY SERVICES/EQUIPMENT:: No current services or equipment reported. PRIMARY CARE PHYSICIAN:: Lis Brock . POTENTIAL DISCHARGE NEEDS:: PT evaluation, follow up appointments. PATIENT/FAMILY EDUCATION NEEDS:: Review discharge instructions, discuss Ask Me Three. ANTICIPATED BARRIERS TO DISCHARGE:: None identified. TRANSPORTATION:: Via private vehicle with her , and a friend. PLAN:: Ana will return home when ready per MD. She will follow up with her PCP and plan of care as prescribed. Anticipate outpatient PT as recommended. Ana will transport via private vehicle with a friend and her upon discharge.
--- NOTE | 2019-07-04 19:29 | PGE_ITS ---
Date of Service Date of service: 07/04/19 Time of Service: 19:29 Assessment and Plan Assessment and plan (1) Transient ischemic attack: Status: Acute Assessment and plan: The patient appears to have had a transient episode. The MRI does not show a definite area of infarct. That will be reviewed further by neurology. Plan is to continue on aspirin therapy, statin therapy, improved blood sugar control. Continue to work with physical therapy. Patient does not want to do outpatient physical therapy but would consider a home program. (2) Diabetes type 2, controlled: Status: Acute Assessment and plan: Poorly controlled diabetes with a hemoglobin A1c of 8.5%. Patient notes that she stopped her metformin recently because she was so discouraged. She also was not following a diabetic diet. She is committed to improving her compliance. Restart metformin on discharge and consider adding a second agent. Subjective Subjective Interval history since last seen: Patient reports the right hand dysfunction she had on admission has resolved. She no longer has any right-sided weakness. She underwent echocardiogram and brain MRI testing today. Exam Narrative Exam Narrative: On exam she has equal finish cleaner strength right versus left hand. Her sensorium is clear. She has no facial asymmetry. The remainder of her neurologic exam is nonfocal. Objective Objective Clinical Data: Abnormal lab results 07/04/19 07/04/19 Range/Units 06:00 06:00 Hemoglobin A1c 8.5 H (3.8-5.6) % LDL Cholesterol, Calc 116 H (<100) mg/dL Vital Signs Temperature 36.6 C 07/04/19 15:27 Temperature Source Tympanic 07/04/19 15:27 Pulse 87 07/04/19 15:27 Pulse Rhythm Regular 07/04/19 15:49 Pulse 84 07/03/19 16:45 Respiratory Rate 18 07/04/19 15:27 Respiratory Effort Non-Labored 07/04/19 15:49 Respiratory Depth Normal 07/04/19 15:49 Respiratory Pattern Normal 07/04/19 15:49 Blood Pressure 142/71 H 07/04/19 15:27 Blood Pressure Mean 93 07/03/19 16:45 Pulse Oximetry 95 07/04/19 15:27 Oxygen Delivery Method Room Air 07/04/19 15:27 Oxygen Flow Rate 0 07/04/19 15:27 Pain Level 0 07/04/19 15:27 Intake & Output 07/03/19 07/04/1907/04/20 23:59 11:59 23:59 Intake Total 350 / 350 480 / 480 Output Total 450 / 450 800 / 1400 600 / 1400 Balance -100 / -100 -320 / -920 -600 / -920 Weight 82.5 kg 82.5 kg Intake: Oral 350 / 350 480 / 480 Output: Urine 450 / 450 800 / 1400 600 / 1400 Other: Urine Color Yellow Light Lisa Yellow [place] Light Lisa Urine Appearance Clear Clear Clear Mucous Threads Urine Odor Normal Normal Normal Comment Scratch in vagina. Voiding Methods Toilet Toilet Toilet Laboratory Results WBC 5.49 k/cumm (4.4-10.8) 07/03/19 12:40 RBC 4.43 m/cumm (4.00-5.20) 07/03/19 12:40 Hgb 13.3 g/dL (12.0-15.5) 07/03/19 12:40 Hct 40.5 % (36.0-46.0) 07/03/19 12:40 MCV 91.4 fL (80-95) 07/03/19 12:40 MCH 30.0 pg (27.0-33.0) 07/03/19 12:40 MCHC 32.8 g/dL (32.0-36.0) 07/03/19 12:40 RDW 13.2 % (11.7-14.6) 07/03/19 12:40 Plt Count 150 x1000/uL (130-400) 07/03/19 12:40 MPV 10.9 fL (8.0-11.0) 07/03/19 12:40 Immature Gran % 0.2 % 07/03/19 12:40 Neutrophils % 63.8 07/03/19 12:40 Lymphocytes % 23.7 07/03/19 12:40 Monocytes % 8.6 07/03/19 12:40 Eosinophils % 3.3 07/03/19 12:40 Basophils % 0.4 07/03/19 12:40 Absolute Neutrophils 3.51 k/cumm (1.2-6.7) 07/03/19 12:40 Absolute Lymphocytes 1.30 k/cumm (1.2-3.4) 07/03/19 12:40 Absolute Monocytes 0.47 k/cumm (0.11-0.7) 07/03/19 12:40 Absolute Eosinophils 0.18 k/cumm (0.0-0.7) 07/03/19 12:40 Absolute Basophils 0.02 k/cumm (0.0-0.2) 07/03/19 12:40 PT 9.7 sec (9.3-11.0) 07/03/19 12:40 INR 1.0 (0.9-1.1) 07/03/19 12:40 Sodium 140 mmol/L (136-145) 07/03/19 12:40 Potassium 4.1 mmol/L (3.5-5.1) 07/03/19 12:40 Chloride 102 mmol/L (98-107) 07/03/19 12:40 Carbon Dioxide 31.1 mmol/L (21.0-32.0) 07/03/19 12:40 Anion Gap 6.9 mmol/L (3-11) 07/03/19 12:40 BUN 22 mg/dL (7-18) H 07/03/19 12:40 Creatinine 0.85 mg/dL (0.55-1.02) 07/03/19 12:40 Estimated GFR/1.73 m2 >= 60.00 (mL/min/1.73m2) 07/03/19 12:40 Glucose 310 mg/dL (74-106) H 07/03/19 12:40 Hemoglobin A1c 8.5 % (3.8-5.6) H 07/04/19 06:00 Calcium 8.8 mg/dL (8.5-10.1) 07/03/19 12:40 Magnesium 1.8 mg/dL (1.8-2.4) 07/03/19 12:40 Total Bilirubin 0.4 mg/dL (0.2-1.0) 07/03/19 12:40 AST 17 U/L (15-37) 07/03/19 12:40 ALT 24 U/L (14-59) 07/03/19 12:40 Alkaline Phosphatase 93 U/L (46-116) 07/03/19 12:40 Troponin I < 0.05 ng/Ml (<0.06) 07/03/19 15:40 Total Protein 8.0 g/dL (6.4-8.2) 07/03/19 12:40 Albumin 3.8 g/dL (3.4-5.0) 07/03/19 12:40 Triglycerides 106 mg/dL (<150) 07/04/19 06:00 Total Cholesterol 186 mg/dL (<200) 07/04/19 06:00 LDL Cholesterol, Calc 116 mg/dL (<100) H 07/04/19 06:00 HDL Cholesterol 49 mg/dL (40-60) 07/04/19 06:00 Urine Color Yellow (Yellow) 07/03/19 14:37 Urine Clarity Sl cloudy (Clear) 07/03/19 14:37 Urine pH 6.5 (5-8) 07/03/19 14:37 Ur Specific Lawrence 1.020 (1.005-1.025) 07/03/19 14:37 Urine Protein Negative mg/dL (Negative) 07/03/19 14:37 Urine Ketones Negative mg/dL (Negative) 07/03/19 14:37 Urine Blood Large (Negative) H 07/03/19 14:37 Urine Nitrite Negative (Negative) 07/03/19 14:37 Urine Bilirubin Negative (Negative) 07/03/19 14:37 Urine Urobilinogen 0.2 EU/dL (Up TO 0.2) 07/03/19 14:37 Ur Leukocyte Esterase Negative (Negative) 07/03/19 14:37 Urine RBC >50 HPF (0-2) H 07/03/19 14:37 Urine WBC 0-2 HPF (0-5) 07/03/19 14:37 Ur Epithelial Cells Rare HPF (Negative) 07/03/19 14:37 Urine Crystals Negative HPF (Negative) 07/03/19 14:37 Urine Bacteria Negative HPF (Negative) 07/03/19 14:37 Urine Casts Negative LPF (Negative) 07/03/19 14:37 Urine Mucus Negative (Negative) 07/03/19 14:37 Urine Other Rare renal (Negative) 07/03/19 14:37 Ur Culture Indicated? No 07/03/19 14:37 Urine Glucose Negative mg/dL (Negative) 07/03/19 14:37 Objective Narrative Objective Narrative: The brain MRI today showed a question of a left parietal s troke. The echocardiogram showed normal LV function with an EF of 65 to 70%.
[2019-07-04 21:00] VITALS: BP 124/76; PULSE 90; RESP 17; TEMP 36.6; O2SAT 95
[2019-07-05] VITALS: BP 131/81; PULSE 95; RESP 16; TEMP 36.4; O2SAT 94
[2019-07-05] MEDS: Levothyroxine 150 MCG TAB PO (07:00)
[2019-07-05 07:08] VITALS: BP 124/75; PULSE 96; RESP 18; TEMP 36.4; O2SAT 96
[2019-07-05 07:51] LABS: Anion Gap 9.2 mmol/L (3-11); BUN 20 mg/dL (7-18); CO2 27.8 mmol/L (21.0-32.0); Calcium 9.1 mg/dL (8.5-10.1); Chloride 102 mmol/L (98-107); Glucose 226 mg/dL (74-106); Potassium 4.2 mmol/L (3.5-5.1); Sodium 139 mmol/L (136-145)
[2019-07-05] MEDS: Insulin Aspart 300 UNITS/3 ML PEN SC (07:55)
[2019-07-05] MEDS: Aspirin E.C. 81 MG TABEC PO (07:55)
--- NOTE | 2019-07-05 09:50 | DSE_ITS ---
Date of service: 07/05/19 Time of Service: 09:50 DS: Diagnosis Discharge Diagnosis (1) Transient ischemic attack: Start date: 07/05/19 Start time: 09:50 Status: Acute (2) Diabetes type 2, controlled: Status: Acute Discharge Plan Disposition Patient Disposition: HOME Condition: Improving Discharge Details Chief Complaint: CVA/TIA Reason For Visit: CVA Admit Date/Time: 07/03/19 15:46 Admit Provider: Lakhwinder Amador Attending Provider: Lakhwinder Amador Primary Care Provider: Thalia Granda ED Provider: Molly Anglin [facility] Hospital Course Hospital Course: 78-year-old woman admitted from [facility] ED after waking up with right hand ataxia. CTA in ED negative for acute process. Patient admitted to m/s for further management. CXR negative for acute process, MRI revealing Cerebral atrophy and microvascular ischemic changes. Question miniscule indeterminate area of abnormal gyral signal high left parietal a could represent small focus of infarction but is not confirmed on ADC map. Echo with LEVF 65-70%, no PFO, RVSP 15-18. Telemetry revealing SR 70-80%. At this time she is stable with cane and would benefit from cane for ambulation. Lipid panel with HDL 49, LDL 116. Neurology consulted recommends patient continue 81 asa and 40 mg atorvastatin. While in hospital blood glucose improved. Patient would like to know what other options she has regarding glucose control. At this time she will continue metformin but is has caused her loose stool so she will follow up with her PCP to discuss what other options are available. Discussed diet and exercise. She feels well enough to go home she is being discharged home with PT/OT follow up with neurology and follow up with PCP in 1 week. She denies CP, N/V/D, SOB. Home Meds and New Rx's Prescriptions: New atorvastatin [Lipitor] 40 mg Tablet 40 mg PO QPM Qty: 15 RF: 0 aspirin 81 mg Tablet,Delayed Release (Dr/Ec) 81 mg PO DAILY Qty: 30 RF: 0 Continued metformin 850 mg Tablet 850 mg PO BID RF: 0 levothyroxine [Synthroid] 112 mcg Tablet 150 mcg PO DAILY RF: 0 furosemide [Lasix] 20 mg Tablet 20 mg PO PRN PRNRF: 0 meloxicam 7.5 mg tablet 7.5 mg PO DAILY Qty: 30 RF: 0 Discharge Instructions Instructions: Carotid Artery Disease (DC), Ischemic Stroke (DC), Stroke (DC), Effects of a Stroke (DC) Additional Instructions: Take metformin until you follow up with your PCP. Take atrovastatin at night, report to your PCP if you have any cramping or muscle pain Follow the ADA diet and exercise daily to lower A1C along with your medications Follow up with your PCP in 1 week, Follow up with Neurology. Referrals: Perla Carrion MD [ [facility] STAFF PHYSICIAN] - Activity:: Activity as Tolerated Equipment/Supplies:: No Equipment Needed Diet:: Carb Counting Discharge Orders Discharge Orders: Discharge Order (Routine); Ordered 07/05/19 Ordered By: Marie Mendoza DS: Summary Status at Discharge Functional status at discharge: uses cane/walker Overall status at discharge: patient is progressing back to baseline Mental Status: mental status grossly normal Speech and Movement: speech and movement normal Mood: congruent mood Affect: normal affect Exam Const General: cooperative, healthy appearing, comfortable and no acute distress HENMT Head: normal to inspection Eyes Pupils: PERRL EOM: EOM intact bilaterally Neck Neck: normal visual inspection Carotids: normal carotid upstroke Lymphatic: no lymphadenopathy noted Chest Chest: normal inspection of the chest Resp Effort & Inspection: normal respiratory effort Auscultation: clear to auscultation bilaterally Cardio Jugular venous pressure: no JVD Rate: regular rate Rhythm: regular rhythm Heart Sounds: S1 normal and S2 normal GI Inspection: normal to inspection Back/Spine/Pelvis Back: no CVA tenderness Skin General skin exam: no rashes or lesions noted Neuro General: alert, awake and oriented x3 Cognition: normal cognition Psych Mental Status: mental status grossly normal Speech and Movement: speech and movement normal Mood: congruent mood Affect: normal affect Attitude: cooperative DS: Data Vitals/I&O Vitals and I&O: Vital Signs Temperature 36.4 C L 07/05/19 07:08 Temperature Source Skin 07/05/19 07:08 Pulse 96 H 07/05/19 07:08 Pulse Rhythm Regular 07/05/19 00:00 Pulse 84 07/03/19 16:45 Respiratory Rate 18 07/05/19 07:08 Respiratory Effort Non-Labored 07/05/19 00:00 Respiratory Depth Normal 07/05/19 00:00 Respiratory Pattern Normal 07/05/19 00:00 Blood Pressure 124/75 07/05/19 07:08 Blood Pressure Mean 93 07/03/19 16:45 Pulse Oximetry 96 07/05/19 07:08 Oxygen Delivery Method Room Air 07/05/19 07:08 Oxygen Flow Rate 0 07/05/19 07:08 Pain Level 0 07/04/19 21:00 Intake & Output 07/04/19 07/04/19 07/05/19 11:59 23:59 11:59 Intake Total 480 / 880 400 / 880 200 / 200 Output Total 800 / 1400 600 / 1400 1300 / 1300 Balance -320 / -520 -200 / -520 -1100 / -1100 Weight 82.5 kg 82.5 kg Intake: Oral 480 / 880 400 / 880 200 / 200 Output: Urine 800 / 1400 600 / 1400 1300 / 1300 Other: Urine Color Light Lisa Yellow Light Lisa Light Lisa Urine Appearance Clear Clear Clear Urine Odor Normal Normal Normal Voiding Methods Toilet Toilet Toilet Data Completed and Pending Completed studies during hospitalization [Text1]: FINDINGS: Preliminary noncontrast cranial CT shows no evidence of acute intracranial hemorrhage, mass effect, or midline shift. There is mild generalized cerebral atrophy. The orbital and temporal bone structures appear intact. CT angiography of cervical cranial region was performed with intravenous infusion of 100 cc of Omnipaque 350 visualized lung apices are clear. Visualized aortic arch and pulmonary arterial circulation unremarkable. There is mild atheromatous calcified plaque in the carotid bifurcations and proximal internal carotid arteries bilaterally, no evidence of stenosis. Otherwise internal carotid arteries extra cranially appear normal. Intracranially the internal carotid arteries show mild atheromatous calcified plaque in the cavernous portions without significant stenosis. No evidence of aneurysm or dissection. Vertebral arteries and basilar artery appear normal with no evidence stenosis, aneurysm, or dissection. Anterior, middle, and posterior cerebral arteries are unremarkable with no evidence of aneurysm, stenosis, or dissection. Left posterior cerebral artery is supplied mainly across the posterior communicating artery. IMPRESSION: No evidence of acute intracranial process. Essentially negative craniocervical CT a with minimal atheromatous plaque noted in the carotid bifurcations and cavernous portions of the internal carotid arteries bilaterally. Exam(s) a RAD:XR chest 2V PA & lateral EXAM: XR CHEST 2V PA LATERAL CLINICAL HISTORY: CVA TECHNIQUE: COMPARISON: XR CHEST 1V IN DI DEPT from 05/02/2019 FINDINGS: The heart is not enlarged. There is retrocardiac hiatal hernia. Lungs appear clear. No pleural effusion. IMPRESSION: No evidence of acute intrapulmonary process. Patient Location: In-Patient Processing Technician: Yumiko Wright RDCS (AE) Rhythm: NSR Indications: CVA Echo Enhancing Agent Indication: CVA, ? cardioembolic Agent(s) / Amount(s) Used: Agitated Saline 30.0 cc Comments: LUIS Carroll pushed bubbles per hospital policy/ protcol through existing 20G iv in RAC. patient consented to bubble study. bubbles ordered by DR. Amador. Conclusion Left Ventricle : The left ventricle is normal size. The left ventricular systolic function is normal. The left ventricular ejection fraction is within the normal range. Asymmetric septal thickening is noted. The posterior wall thickness is normal. The septal thickness is moderately increased. There is normal LV segmental wall motion. There is evidence of impaired relaxation. LVEF is estimated to be 65-70%. Right Ventricle : The right ventricle is normal size. The right ventricular systolic function appears normal. Atria : The left atrium size is normal. The right atrium size is normal. Saline bubble contrast intravenous injection does not demonstrate PFO. Aortic Valve : Aortic valve is trileaflet. There is focal annular sclerosis No aortic regurgitation is present. There is no aortic valvular stenosis. Mitral Valve : The mitral valve is normal in structure. There is no mitral valve regurgitation noted. No evidence of mitral valve stenosis. Tricuspid Valve : The tricuspid valve is not well visualized. Trace tricuspid regurgitation. Great Vessels : IVC is normal in size and collapses >50% with inspiration. Estimated RVSP is 15-18 mmHg. There is no prior echocardiogram available for comparison. Exam(s) a MRI:MR brain wo EXAM: MR BRAIN WO CLINICAL HISTORY: CVA, right hand ataxia. TECHNIQUE: Multiplanar multisequence MRI was performed. COMPARISON: No exams were available for comparison FINDINGS: MR examination of brain was performed according usual protocol. There is moderate generalized cerebral atrophy. Periventricular regions of abnormal signal sparing corpus callosum are consistent with microvascular ischemic changes. Diffusion-weighted imaging shows questionable very tiny gyral abnormal signal left parietal, ADC map does not confirm tiny infarct but this could be below the limit of resolution of the ADC map. No other signal abnormality identified in the brain. Some susceptibility weighted imaging shows no evidence of hemorrhage. There is normal flow void in the [id number] vasculature. The orbital and temporal bone structures appear intact. Pituitary appears intact. IMPRESSION: Cerebral atrophy and microvascular ischemic changes. Question miniscule indeterminate area of abnormal gyral signal high left parietal a could represent small focus of infarction but is not confirmed on ADC map. Labs on day of discharge: Labs from last 24 hours 07/05/19 07:30 Sodium 139 Potassium 4.2 Chloride 102 Carbon Dioxide 27.8 Anion Gap 9.2 BUN 20 H Creatinine 0.80 Estimated GFR/1.73 m2 >= 60.00 Glucose 226 H D Calcium 9.1 [facility] Medical History Diabetes type 2, controlled (Acute) Fracture of proximal humerus (Acute 05/01/19) Hypothyroidism (Chronic) Social History Smoking/Tobacco Use Status: Never Alcohol Intake: never Drug use: Never Substance use type: does not use Current gender identity: female Do you feel safe at home: Yes Do you feel safe in your relationship?: Yes
--- NOTE | 2019-07-05 10:09 | PDOC.HHF2F_ITS ---
Home Health Certification Home Health Certification: 1. Encounter Date and Reason I certify that SHOSHANA TAO was seen by Marie Mendoza on 07/05/19 and that I had a [id number] encounter with this patient that meets the physician face to face encounter requirements. 2. Clinical Findings Supporting Skilled Need and Homebound Status I certify that home health services are medically necessary, include either intermittent penitentiary and/or physical/speech therapy, and that this patient is homebound in that absences from the home require considerable and taxing effort and are infrequent or of short duration, or are attributable to the need to receive medical care. [X] (a) Attached documentation from encounter provides clinical findings supporting skilled need and homebound status (including what assistance patient requires to leave the home). The encounter with the patient was in whole, or in part, for the following medical condition, which is the primary reason for home health care: CVA Shelter: Physical Therapy: patient would benefit from PT/OT to increase stability and return to baseline. Speech Therapy: Homebound: Unable to leave house unassissted. 3. Certification and Authentication I certify that I composed the above information based on my clinical judgement relating to this patient's medical condition and, if applicable, clinical findings communicated to me by the NPP or inpatient physician who performed the Home Health Referral. All further orders will be obtained through (Community Based Physician - PCP)
[2019-07-05 11:02] VITALS: PULSE 109
--- NOTE | 2019-07-05 13:18 | PT.INTREAT ---
Date of service: 07/05/19 Time of Service: 09:40 PT Notes Visit Reasons: Cerebrovascular accident Inpatient Physical Therapy Treatment Note [facility] Date: 07/05/19 PRECAUTIONS:Fall, standard and activity to tolerance SUBJECTIVE: Indicated she is going home today. Doing well. OBJECTIVE: PAIN: No complaints of pain offered. BED MOBILITY/TRANSFERS Up in chair upon my arrival to room. Sit-stand: SBA Stand-sit: SBA GAIT Assistive Device: Straight cane Weight bearing: full Assist: SBA/ CGA Distance: 120ft x 2 THEREX: Performed SAQs, seated hip flexion, seated hip abd/add, standing heel raises and sit to stand transfers without hands. STAIRS: Ambulated up / down 3 4inch and 2 6inch stairs utilizing handrail and straight cane. Utilized step over gait with going up stairs and step to gait pattern with going down. CGA with stairs. ASSESSMENT: Tolerated today's session well with good effort given. Did advise patient to utilize walker if feeling off balance. PLAN: To be DC'ed home today by a friend and her . TREATMENT CODE/TIME: 09:40 to 11:10 (30'), [id number]
--- NOTE | 2019-07-05 13:21 | PDOC.CMDIS ---
- If Service Date Differs Date of service: 07/05/19 Time of Service: 13:21 LACE Index Scoring Tool - Questions: Length of Stay (in days): 2 Acuity (Admit via E.D.?): Yes Comorbidities: Diabetes w/o Complication E.D. Visits: 3 - Answers: Total Score: 9 Risk of Readmission: Low Risk Care Management Discharge Reason for Hospitalization: CVA Discharge Plan: Ana will return home with no new services. MD. She will follow up with her PCP and plan of care as prescribed. She will have outpatient PT through [place] [facility]. Ana will transport via private vehicle with a friend and her upon discharge. Patient/Family Education Needs: Discharge plan and follow up, limitations, Ask Me Three. Services Needed at Discharge: Home Health Care Services
--- NOTE | 2019-07-07 07:23 | OT.INDS ---
Date of service: 07/07/19 Time of Service: 07:23 Occupational Therapy Notes Occupational Therapy Inpatient Discharge Summary Date: 07/07/19 for 07/05/19 Dates of Service: 07/04/19 Referring Doctor:Lakhwinder Amador MD OT Orders: Urgent- Fall Safety Assessment Precautions: Fall, Standard PATIENT PROFILE/ADMITTING DIAGNOSIS: Pt is a 78 year old female who was admitted through the ER on 07/03/19 for CVA/TIA, (R) hand weakness, Ataxia (R) UE and DM 2. Past Medical History: (Updated 07/03/19 @ 18:12 by Lakhwinder Amador MD) Altered mental status (Acute ~02/2019) Diabetes type 2, controlled (Acute) Fracture of proximal humerus (Acute 05/01/19) Hypothyroidism (Chronic) Social History/Home Situation: [place] who she takes care of. She states that she is (I) at baseline and he relies on her for driving, meals, laundry, (A) with his ADLs/IADLs and taking care of the home. She states that she does not have any services in the home and feels that she was (I) even with proximal (L) humeral fx. She is not receptive to services at this time. She states that they have a sone who lives in [place]. She has a home there and a storage shed with more of her stuff. Her was a saw operator and she (A) him for many years. Her laundry is in her basement and she states that she has 14 steps. Equipment owned/DME: Shower chair, raised toilet, grab bars. SUBJECTIVE: NT OBJECTIVE: *This document serves as a summary of care, no skilled OT services were provided for this documentation. ROM: RUE AROM WFL L UE Shoulder flexion limited to 90* due to proximal humeral fx from recent fall, elbow WNL, hand/digits and wrist WNL STRENGTH: RUE Shoulder flexion 4/5, bicep 4-/5, tricep 4/5, belt dresser is strong (R) > (L) LUE Shoulder flexion 2+/5, bicep 3+/5, tricep 3+/5, belt dresser is strong (R) > (L) SENSATION: Intact per pt report in (B) UE. FUNCTIONAL MOBILITY/ADLS: Transfers Supine-sit Min (A) Sit-supine Min (A) Sit-Stand (I) Stand-sit (S) with LOB Bed-Chair (S) Chair-bed (S) with LOB BATHING NT DRESSING Dressing LE Sitting on side of bed with min vc for leg placement able to (I) don and doff (B) socks with good technique. GROOMING Sitting on side of bed (I) with brushing hair, denies teeth at sink TOILETING On toilet LOB when sitting, (I) with toilet hygiene EATING NT BALANCE: Static sitting Normal Dynamic Sitting Normal Static Standing Normal Dynamic Standing Good ASSESSMENT: Patient is a 78-year-old female referred to occupational therapy services with diagnosis of CVA/TIA with (R) hand weakness, Ataxia (R) UE, DM 2. Pt was seen for OT consult only on 07/04/19. She was discharged home on 07/05/19 and OT was unable to assess or progress pts goals at this time. GOALS- Unable to assess as pt was seen for OT consult only. 1. Transfers LRD (I) 2. Dressing (I) sitting in chair 3. Bathing (I) in shower for UE/LE 4. Toileting (I) on toilet 5. Eating (I) PLAN OF CARE/TREATMENT PLAN: Pt was transferred home on 07/05/19 when medically cleared per MD. DISCHARGE RECOMMENDATIONS Home with services when medically cleared per MD. TREATMENT TIME/MINUTES/CODES N/A Sharron Thorne OTR/L [facility]
--- NOTE | 2019-07-08 11:28 | INDS_ITS ---
Date of service: 07/08/19 Time of Service: 11:28 PT Notes Visit Reasons: Cerebrovascular accident Physical Therapy Inpatient Initial Evaluation Date: 07/08/2019 Dates of Service: 06/24/2019 through 07/05/2019 This is a clinical summary of care provided on the duration of dates listed above. No charge was made in the completion of this documentation. Referring Doctor: Lakhwinder Amador M.D. PT Orders: PT CONSULT: Fall Safety Assessment; CVA? Precautions: Fall. Standard. Activity as tolerated. Patient Profile/Admitting Diagnosis: Pt is a 78-year-old female that presented to the ER on 07/02/2019 for ataxia of her right upper extremity. She was admitted for ataxia of the right upper extremity and diabetes mellitus type II. PMHX: Medical History (Updated 07/03/19 @ 18:12 by Lakhwinder Amador MD) Altered mental status (Acute ~02/2019) Diabetes type 2, controlled (Acute) Fracture of proximal humerus (Acute 05/01/19) Hypothyroidism (Chronic) Social History/Home Situation: Pt lives at home with her , Timmy. One step into the breeze way and one step up into the house. There are two steps into the kitchen. Notes there are 14 steps down to the cellar where her laundry room is. She states is the one that does the laundry in the house and has to be able to get into the cellar. Equipment Owned/DME: [employer] Objective: General Observation: Telemonitor in place. Pain: 0/10 Vital Signs: NT ROM: Right Upper Extremity: Shoulder Flexion WFL. Shoulder abduction WFL. Elbow flexion WFL. Wrist flexion WFL. Opening and closing of hand WFL. Left Upper Extremity: Shoulder Flexion 30-40 degrees and painful AROM. Shoulder abduction WFL. Elbow flexion WFL. Wrist flexion WFL. Opening and closing of hand WFL. Right Lower Extremity: Hip flexion WFL. Hip abduction WFL. Knee flexion WFL. Ankle dorsiflexion WFL. Ankle plantarflexion WFL. Left Lower Extremity: Hip flexion WFL. Hip abduction WFL. Knee flexion WFL. Ankle dorsiflexion WFL. Ankle plantarflexion WFL. Strength: Right Upper Extremity: Shoulder flexors 5/5. Shoulder abductors 5/5. Elbow flexors 5/5. Elbow extensors 5/5. Medical Laboratory Scientist strong. Left Upper Extremity: Shoulder flexors 2+/5. Shoulder abductors 5/5. Elbow flexors 5/5. Elbow extensors 5/5. Medical Laboratory Scientist strong. Right Lower Extremity: Hip flexors 5/5. Hip abductors 5/5. Knee flexors 5/5. Knee extensors 5/5. Ankle dorsiflexors 5/5. Ankle plantarflexors 5/5. Left Lower Extremity: Hip flexors 5/5. Hip abductors 5/5. Knee flexors 5/5. Knee extensors 5/5. Ankle dorsiflexors 5/5. Ankle plantarflexors 5/5. Sensation: Intact as to pain and pressure on bilateral lower extremities. Bed Mobility/Transfers: Rolling independent Supine to sit independent Sit to supine independent Sit to stand supervision Stand to sit supervision Bed to chair supervision Chair to bed supervision Gait: Pt was able to ambulate 120 feet x2, full weightbearing, using a single point cane. Supervision provided by [employer] Reciprocal gait pattern. Unremarkable. Stairs: Pt was able to ascend and descend 4 inch steps x 3 and 6 inch steps x2 using unilateral railing and cane. Step over pattern up the stairs and step to pattern down the stairs. Balance: Static Sitting: Normal Dynamic Sitting: Normal Static Standing: Good Dynamic Standing: Good Coordination: Pt was able to perform [id number], rihr-be-[id number]-finger, ltuy-qk-stfk, and slow, alternating rhythms without difficulty. No ataxia of the right upper extremity observed. Four-Stage Balance Test: Pt was able to maintain feet together for greater than 15 seconds, but unable to progress any further with testing without loss of balance. Assessment: Pt is a 78-year-old female that presented to the ER on 07/02/2019 for ataxia of her right upper extremity. She was admitted for ataxia of the right upper extremity and diabetes mellitus type II. Pt presented with impairment level findings and functional limitations as listed below. She demonstrated adequate coordination bilaterally with no apparent ataxia of the right upper extremity observed. Strength and sensation appeared to be intact bilaterally. She showed improvements in her tolerance to ambulation as she was able walk a greater distance with requiring a rest break with the use of a single point cane. She would benefit from home physical therapy at this time for continued mobility and strengthening in the home. Patient presented with clinical signs and symptoms consistent with current/admitting diagnoses that have resulted to mobility limitations, gait instability, and generalized weakness as demonstrated by the following impairment level findings: 1. Decreased strength to L UE shoulder major muscle groups 2. Impaired standing balance 3. Impaired activity tolerance 4. Limitation of joint range of motion in left shoulder Impairments continue to contribute to the following functional limitations: 1. Increased dependence with transfers 2. Inability to safely ambulate without assistive device and physical assistance 3. Increase completion time for mobility ADL performance 4. Increased fall risk 5. Inability to negotiate steps alone safely Patient is assessed as a [id number] moderate complexity based on the following: History: Pt is a 78-year-old female that presented to the ER on 07/02/2019 for ataxia of her right upper extremity. She was admitted for ataxia of the right upper extremity and diabetes mellitus type II. Presents with impairment level findings and functional limitations as listed above. Examination: Demonstrable impairment in strength, balance, and range of motion with underlying impairments and functional limitations as documented above Presentation: Evolving Decision Makin moderate complexity Goals: Goals X1 week 1. Sit-Stand independent-NOT MET 2. Stand-Sit independent-NOT MET 3. Bed-Chair independent-NOT MET 4. Chair-Bed independent-NOT MET 5. Independent gait on level surface with use of least restrictive device for at least 300 feet without report of pain nor dyspnea-NOT MET 6. Independent stair negotiation while holding onto bilateral rails for at least 15 steps without report of pain nor dyspnea-NOT MET 7. Independent with home exercise program -NOT MET 8. Good static and dynamic standing balance/tolerance -NOT MET DISCHARGE RECOMMENDATIONS: Discharge to home with cane to assist with balance when ambulating. Recommend home health physical therapy for continued improvements in mobility. Thank you very much for this referral. Yanira Branch, SPT Doctor of Physical Therapy Student [facility] Supervision provided by Alma Rosa Gould PT, DPT, CLT [facility] [place], [place]
== END 2019-07-05 12:06 | disposition home or self-care (01) | DRG 69 ==
LOC: ER 12:32 → MS 17:04
PROVIDERS: Nurse Practitioner Family; Admitting Provider Family Medicine; Emergency Provider Physician Assistant; PCP Nurse Practitioner Family; Visit Provider Internal Medicine
DX: G45.9 Transient cerebral ischemic attack, unspecified (principal); E11.9 Type 2 diabetes mellitus without complications; Z79.84 Long term (current) use of oral hypoglycemic drugs; E03.9 Hypothyroidism, unspecified; R90.89 Other abnormal findings on diagnostic imaging of central nervous system
CPT/HCPCS: 36415; 36416; 70496; 70498; 80048; 80053; 80061; 82962; 93005; 93306; 97110; 97162; 97166; 97530; 99222; 99223; 99232; 99239; 99285; 70551; 71046; 81003; 81015; 83036; 83735; 84484; 85025; 85610; 93010; J3490

== ENCOUNTER → 2019-07-04 07:42 | Outpatient (BNVA) | payer MEDICARE, OTHER, SELFPAY | PROVIDERS: PCP Nurse Practitioner Family; Referring Provider Nurse Practitioner Family; Visit Provider Psychiatry & Neurology Neurology | DX: R69 Illness, unspecified (principal) ==

== ENCOUNTER 2019-07-16 10:28 | Outpatient (CLI) | payer MEDICARE, OTHER, SELFPAY ==
--- NOTE | 2019-07-16 10:24 | DI.RAD_ITS ---
EXAM: XR SHOULDER LT COMPLETE 2+V INDICATION: F/U FRACTURE. COMPARISON: XR SHOULDER LT COMPLETE 2+V from 06/11/2019 TECHNIQUE: 2D digital imaging was performed. FINDINGS: There has been no change in fracture alignment. There is increased callus formation around the proxi mal humeral fracture. Inferior subluxation of the humeral head relative to the glenoid remains prese nt.
== END 2019-07-16 10:48 ==
PROVIDERS: PCP Nurse Practitioner Family; Referring Provider Nurse Practitioner Family; Visit Provider Orthopaedic Surgery
DX: S42.202D Unspecified fracture of upper end of left humerus, subsequent encounter for fracture with routine healing (principal)
CPT/HCPCS: 99213; 73030

== ENCOUNTER 2019-07-17 14:24 | Outpatient (REF) | payer MEDICARE, OTHER, SELFPAY ==
[2019-07-17 19:28] LABS: TSH 5.32 uIU/mL (0.36-3.74)
== END 2019-07-17 14:44 ==
LOC: NCHCN 14:24
PROVIDERS: PCP Nurse Practitioner Family; Visit Provider Nurse Practitioner Family
DX: E03.9 Hypothyroidism, unspecified (principal)
CPT/HCPCS: 84443

== ENCOUNTER 2019-07-21 03:44 | Outpatient (CLI) | payer MEDICARE, OTHER, SELFPAY | END 2019-07-21 04:04 | PROVIDERS: PCP Nurse Practitioner Family; Visit Provider Psychiatry & Neurology Neurology | DX: R69 Illness, unspecified (principal) ==

== ENCOUNTER 2019-09-09 09:51 | Outpatient (CLI) | payer MEDICARE, OTHER, SELFPAY ==
--- NOTE | 2019-09-09 09:45 | DI.RAD_ITS ---
EXAM: XR SHOULDER LT COMPLETE 2+V CLINICAL HISTORY: f/u fracture TECHNIQUE: COMPARISON: XR SHOULDER LT COMPLETE 2+V from 07/16/2019 FINDINGS: Two views were obtained and show previously described proximal humeral fracture, no gross interval ch paris in alignment of fracture fragments in comparison with prior films of July 16. IMPRESSION:
== END 2019-09-09 10:11 ==
PROVIDERS: PCP Nurse Practitioner Family; Visit Provider Orthopaedic Surgery
DX: S42.202D Unspecified fracture of upper end of left humerus, subsequent encounter for fracture with routine healing (principal); X58.XXXD Exposure to other specified factors, subsequent encounter
CPT/HCPCS: 99213; 73030

== ENCOUNTER → 2019-10-22 12:19 | Outpatient (BNVA) | payer MEDICARE, OTHER, SELFPAY | PROVIDERS: PCP Nurse Practitioner Family; Referring Provider Nurse Practitioner Family; Visit Provider Psychiatry & Neurology Neurology | DX: I63.9 Cerebral infarction, unspecified (principal); R20.2 Paresthesia of skin; R41.3 Other amnesia; E11.9 Type 2 diabetes mellitus without complications | CPT/HCPCS: 99214 ==

== ENCOUNTER → 2019-11-04 09:50 | Outpatient (BNVA) | payer MEDICARE, OTHER, SELFPAY | PROVIDERS: PCP Nurse Practitioner Family; Visit Provider Orthopaedic Surgery | DX: S42.202D Unspecified fracture of upper end of left humerus, subsequent encounter for fracture with routine healing; X58.XXXD Exposure to other specified factors, subsequent encounter | CPT/HCPCS: 99213 ==

== ENCOUNTER 2020-04-01 12:10 | Outpatient (REF) | payer MEDICARE, OTHER, SELFPAY ==
[2020-04-01 19:41] LABS: Anion Gap 6.1 mmol/L (3-11); BUN 20 mg/dL (7-18); CO2 29.9 mmol/L (21.0-32.0); CREATININE 0.81 mg/dL (0.55-1.02); Calculated LDL 112 mg/dL (<100); Chloride 105 mmol/L (98-107); Cholesterol 197 mg/dL (<200); Glucose 177 mg/dL (74-106); HDL Cholesterol 65 mg/dL (40-60); Potassium 4.4 mmol/L (3.5-5.1); Sodium 141 mmol/L (136-145); TSH 0.15 uIU/mL (0.36-3.74); Triglyceride 101 mg/dL (<150)
[2020-04-01 20:40] LABS: Hemoglobin A1C 9.1 % (<5.7)
== END 2020-04-01 12:30 ==
LOC: NCHCN 12:10
PROVIDERS: PCP Nurse Practitioner Family; Visit Provider Nurse Practitioner Family
DX: E03.9 Hypothyroidism, unspecified (principal); E11.65 Type 2 diabetes mellitus with hyperglycemia
CPT/HCPCS: 80048; 80061; 83036; 84443

== ENCOUNTER 2020-08-04 16:20 | Outpatient (REF) | payer MEDICARE, OTHER, SELFPAY ==
[2020-08-04 16:05] LABS: COMMENT (LAB VIEW ONLY) 94.33 mg/dL; Microalb ug/mg Crea 72.1 ug/mg Cr
[2020-08-04 16:13] LABS: Anion Gap 8.2 mmol/L (3-11); BUN 28 mg/dL (7-18); CO2 28.8 mmol/L (21.0-32.0); CREATININE 0.8 mg/dL (0.55-1.02); Calcium 9.4 mg/dL (8.5-10.1); Chloride 102 mmol/L (98-107); Glucose 210 mg/dL (74-106); Potassium 4.8 mmol/L (3.5-5.1); Sodium 139 mmol/L (136-145); TSH (W/Ref FT4) 0.12 uIU/mL (0.36-3.74)
[2020-08-04 16:42] LABS: FREE T4 1.44 ng/dL (0.76-1.46)
== END 2020-08-04 16:21 | disposition home or self-care (01) ==
LOC: NCHCN 16:20
PROVIDERS: PCP Nurse Practitioner Family; Visit Provider Physician Assistant
DX: E03.9 Hypothyroidism, unspecified (principal); E11.65 Type 2 diabetes mellitus with hyperglycemia
CPT/HCPCS: 80048; 82043; 82570; 84439; 84443

== ENCOUNTER → 2020-09-27 14:14 | Outpatient (BNVA) | payer MEDICARE, OTHER, SELFPAY | PROVIDERS: PCP Nurse Practitioner Family; Referring Provider Nurse Practitioner Family; Visit Provider Psychiatry & Neurology Neurology | DX: I63.9 Cerebral infarction, unspecified (principal); R41.3 Other amnesia; H53.2 Diplopia | CPT/HCPCS: 99215 ==

== ENCOUNTER 2020-12-22 11:36 | Outpatient (REF) | payer MEDICARE, OTHER, SELFPAY ==
[2020-12-22 21:11] LABS: Anion Gap 7.9 mmol/L (3-11); BUN 29 mg/dL (7-18); CO2 28.1 mmol/L (21.0-32.0); CREATININE 0.9 mg/dL (0.55-1.02); Calcium 9.6 mg/dL (8.5-10.1); Calculated LDL 134 mg/dL (<100); Chloride 103 mmol/L (98-107); Cholesterol 222 mg/dL (<200); Glucose 279 mg/dL (74-106); HDL Cholesterol 61 mg/dL (40-60); Potassium 4.9 mmol/L (3.5-5.1); Sodium 139 mmol/L (136-145); TSH (W/Ref FT4) 1.75 uIU/mL (0.36-3.74); Triglyceride 136 mg/dL (<150)
== END 2020-12-22 11:37 | disposition home or self-care (01) ==
LOC: NCHCN 11:36
PROVIDERS: PCP Nurse Practitioner Family; Visit Provider Physician Assistant
DX: E03.9 Hypothyroidism, unspecified (principal); E11.9 Type 2 diabetes mellitus without complications
CPT/HCPCS: 80048; 80061; 84443

== ENCOUNTER 2021-12-16 16:23 | Outpatient (REF) | payer MEDICARE, OTHER, SELFPAY ==
[2021-12-16 19:47] LABS: ALT 26 U/L (14-59); AST 19 U/L (15-37); Albumin 3.6 g/dL (3.4-5.0); Alkaline Phosphatase 65 U/L (46-116); Anion Gap 8.6 mmol/L (3-11); BUN 31 mg/dL (7-18); Bilirubin, Total 0.3 mg/dL (0.2-1.0); CO2 27.4 mmol/L (21.0-32.0); CREATININE 1.2 mg/dL (0.55-1.02); Calcium 9.2 mg/dL (8.5-10.1); Chloride 102 mmol/L (98-107); Estimated GFR 43.01 (mL/min/1.73m2); Magnesium 1.9 mg/dL (1.8-2.4); Potassium 5.2 mmol/L (3.5-5.1); Sodium 138 mmol/L (136-145); TSH (W/Ref FT4) 1.85 uIU/mL (0.36-3.74); Total Protein 7.6 g/dL (6.4-8.2)
[2021-12-16 19:59] LABS: Glucose 405 mg/dL (74-106)
[2021-12-19 05:50] LABS: Vitamin D 25 Total 38.9 ng/mL (30-100)
== END 2021-12-16 16:24 | disposition home or self-care (01) ==
LOC: NCHCN 16:23
PROVIDERS: PCP Nurse Practitioner Family; Visit Provider Physician Assistant
DX: E11.65 Type 2 diabetes mellitus with hyperglycemia (principal); E55.9 Vitamin D deficiency, unspecified; E03.9 Hypothyroidism, unspecified; R55 Syncope and collapse
CPT/HCPCS: 80053; 82306; 83735; 84443

== ENCOUNTER 2022-05-07 19:47 | Emergency (ER) | payer MEDICARE, OTHER, SELFPAY ==
[2022-05-07 19:51] VITALS: BP 162/75; PULSE 98; RESP 20; TEMP 37; O2SAT 98
--- NOTE | 2022-05-07 20:00 | DI.RAD_ITS ---
Exam(s) XR RIBS LT W PA LAT CHEST CLINICAL HISTORY trauma posterior fifth sixth rib pain. COMPARISON: CR XR CHEST 2V PA LATERAL from 07/03/2019 TECHNIQUE:: PA and lateral views of the chest and 2 oblique views of the left ribs were performed. FINDINGS: LUNGS: Clear. No pleural abnormality seen. HEART: Normal. MEDIASTINUM: Large hiatal hernia with air-fluid level. BONES: There are old fractures of the 5th and 6th ribs. An old left humeral fracture is also present . No acute displaced rib fracture is seen. No compression fractures are seen in the thoracic spine. No bony destructive lesion is seen. OTHER FINDINGS: None. IMPRESSION: 1. No acute rib fracture visible. There are old fractures of the left 5th and 6th ribs.. 2. No acute pulmonary findings.
--- NOTE | 2022-05-07 20:00 | DI.CT_ITS ---
Exam(s) CT HEAD CERVICAL SPINE WO EXAM: CT HEAD CERVICAL SPINE WO CLINICAL HISTORY: fall/trauma. TECHNIQUE: Imaging Protocol: Axial computed tomography images with coronal and sagittal reformatted images were created and reviewed COMPARISON: CT CT BRAIN NECK CTA from 07/03/2019 FINDINGS: Head CT Ventricles and Extra axial spaces: Normal in size and morphology for the patient's age. Hemorrhage: None. Cerebral parenchyma: Mild white matter changes of small vessel disease. Midline shift: None. Brainstem/Cerebellum: Normal. Calvarium: Normal. High left parietal mild scalp swelling Visualized Paranasal sinuses/Mastoids: Clear. Cervical Spine CT BONES: Vertebral body heights are maintained. Scoliosis cervical thoracic junction.. There is no reuben dence of acute fracture. Degenerative disc changes and facet degenerative changes are seen . SOFT TISSUES: No paraspinal hematoma. The airway appears intact. No pneumothorax is seen at the lung apices. IMPRESSION: Head CT: Scalp swelling. No acute intracranial abnormality. C-spine CT: Degenerative changes, no acute abnormality. RADIATION DOSE DELIVERED: 1,329.4mGy.cm Total DLP DATA REPOSITORY: All CT scans at this facility are submitted to the National Radiology Data Registry (NRDR) Dose Index Registry (DIR) with the [employer] (ACR). RADIATION OPTIMIZATION: All CT scans at this facility use at least one of these dose optimization te chniques: automated exposure control; mA and/or kV adjustment per patient size (includes targeted exa ms where dose is matched to clinical indication); or iterative reconstruction.
--- NOTE | 2022-05-07 21:07 | DI.VRAD_ITS ---
PROCEDURE INFORMATION: Exam: CT Head Without Contrast Exam date and time: 05/07/2022 8:45 PM Age: 81 years old Clinical indication: Injury; Blunt trauma; Consciousness not specified; Fall TECHNIQUE: Imaging protocol: Computed tomography of the head without contrast. COMPARISON: MR BRAIN WO 07/04/2019 12:08 PM FINDINGS: Brain: Periventricular white matter areas of decreased density which are likely secondary to chronic ischemia from microvascular change. No acute intracranial hemorrhage. Diffuse cerebral atrophy. Cerebral ventricles: Ventricular prominence in this patient with diffuse cerebral atrophy. Paranasal sinuses: No significant disease of the paranasal sinuses. Mastoid air cells: Normally aerated mastoid air cells. Bones/joints: No acute fracture. Soft tissues: Posterolateral left scalp soft tissue edema. Vasculature: Arterial calcifications. IMPRESSION: 1. No acute fracture. 2. Posterolateral left scalp soft tissue edema. 3. No acute intracranial findings. 4. Diffuse cerebral atrophy. Age-related periventricular white matter changes. PROCEDURE INFORMATION: Exam: CT Cervical Spine Without Contrast Exam date and time: 05/07/2022 8:45 PM Age: 81 years old Clinical indication: Injury; Blunt trauma; Consciousness not specified; Fall TECHNIQUE: Imaging protocol: Computed tomography of the cervical spine without contrast. COMPARISON: MR BRAIN WO 07/04/2019 12:08 PM FINDINGS: Bones/joints: No acute fracture. No subluxation. No significant disc protrusion. No severe spinal canal stenosis. Cervical spine multilevel degenerative / spondylitic changes with multilevel neural foraminal narrowing. Lungs: Lung apices are normal. Soft tissues: Unremarkable. IMPRESSION: No acute fracture or subluxation. Dictated and Authenticated by: Bradley Boyd MD. Ordering:MAURA Powell MD
--- NOTE | 2022-05-07 21:13 | ED.GENADUL_ITS ---
Discharge Plan Disposition Patient Disposition: Home Condition: Improving Discharge Details Clinical Impression: Fall, Head injury due to trauma, Laceration of scalp Primary Care Provider: Taisha Wagner ED Provider: Andre Bean Home Meds and New Rx's Prescriptions: No Action meloxicam 7.5 mg tablet 7.5 mg PO DAILY PRN glipizide 5 mg tablet 2.5 mg PO BID levothyroxine [Synthroid] 112 mcg Tablet 150 mcg PO DAILY Discharge Instructions Instructions: Head Injury (ED), Head Laceration (ED) Additional Instructions: You may take [id number] pain medication as needed for discomfort. If you develop any new or significant worsening of symptoms such as neurological deficits, altered mental status, weakness into any of your extremities. Please return to the emergency department for reassessment. Watch for any signs of infection and return immediately to the emergency department if these occur. Otherwise keep dressing in place for the next 24-48 hours and then keep wound clean and dry. Return to the emergency department 7 days for suture removal. Referrals: Taisha Wagner [Primary Care Provider] - (As needed for reassessment) Discharge Data Discharge Date/Time-TO BE ENTERED AT DEPARTURE: 05/07/22 23:12 Medical Decision Making Patient presenting to the emergency department for chief complaint of head injury. Patient states clinical fall where she fell back striking her head on the concrete. Patient states slight back discomfort just below the left scapula and left hip pain but states she is fully ambulatory and hip more feels like a bruise. Physical exam shows mild soft tissue tenderness to the left hip but no bony tenderness and patient is weightbearing. Patient does have some tenderness to the posterior ribs approximately rib #6 but patient has no C-spine or T-spine tenderness normal neurological exam patient does have a 4 cm scalp laceration and hematoma to the vertex of her scalp but no obvious findings of depressed skull fracture. Given patient's age so we will perform CT imaging of head and neck and plain film imaging for possible posterior rib fracture. Reviewed radiological imaging which shows no acute fracture or worrisome finding. Please see procedure note for suture repair which patient tolerated well. 4 sutures were placed along with Dermabond along with small lower flap. Gave standard instructions for monitoring of symptoms along with return precautions. After discussion of diagnosis and plan of care patient and son have no further needs, questions, or concerns and states clear understanding to return to the emergency department for any worsening symptoms. This documentation was generated using [employer] system, please disregard any oddities of phrase or misspellings. Imaging Data Radiologic Study: Imaging: CT Scan Radiologist's impression: Exam: CT Head Without Contrast Exam date and time: 05/07/2022 8:45 PM Age: 81 years old Clinical indication: Injury; Blunt trauma; Consciousness not specified; Fall TECHNIQUE: Imaging protocol: Computed tomography of the head without contrast. COMPARISON: MR BRAIN WO 07/04/2019 12:08 PM FINDINGS: Brain: Periventricular white matter areas of decreased density which are likely secondary to chronic ischemia from microvascular change. No acute intracranial hemorrhage. Diffuse cerebral atrophy. Cerebral ventricles: Ventricular prominence in this patient with diffuse cerebral atrophy. Paranasal sinuses: No significant disease of the paranasal sinuses. Mastoid air cells: Normally aerated mastoid air cells. Bones/joints: No acute fracture. Soft tissues: Posterolateral left scalp soft tissue edema. Vasculature: Arterial calcifications. IMPRESSION: 1. No acute fracture. 2. Posterolateral left scalp soft tissue edema. 3. No acute intracranial findings. 4. Diffuse cerebral atrophy. Age-related periventricular white matter changes. PROCEDURE INFORMATION: Exam: CT Cervical Spine Without Contrast Exam date and time: 05/07/2022 8:45 PM Age: 81 years old Clinical indication: Injury; Blunt trauma; Consciousness not specified; Fall TECHNIQUE: Imaging protocol: Computed tomography of the cervical spine without contrast. COMPARISON: MR BRAIN WO 07/04/2019 12:08 PM FINDINGS: Bones/joints: No acute fracture. No subluxation. No significant disc protrusion. No severe spinal canal stenosis. Cervical spine multilevel degenerative / spondylitic changes with multilevel neural foraminal narrowing. Lungs: Lung apices are normal. Soft tissues: Unremarkable. IMPRESSION: No acute fracture or subluxation. Radiologic Study #2: Imaging: X-Ray Radiologist's impression: IMPRESSION: 1.With regards to the ribs, no definite rib fracture is appreciated, particularly on the left in the region of the patient's BB marker. 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 If rib fracture remains a concern, CT scan is recommended. 2.There is a large hiatal hernia containing an air-fluid level. This was also present on prior examination. Correlation with any concern for obstructive process associated with this hernia is recommended. Other findings/details as above. Sign Out No HPI General Mode of arrival: wheelchair . Date/Time Provider Initiated Documentation: 05/07/22 19:59 . Limitations to Documentation: no limitations . Information obtained by: patient, family and RN notes reviewed . History of Present Illness 81 year old F presents to the emergency department with the chief complaint of Fall with head injury, Quality is described as other (Denies pain), and is localized to the head. Patient started experiencing this hour(s) (5) and it has been constant. No relieving factors improve symptom(s), No exacerbating factors reported . Patient did receive the following treatments prior to arrival, none Related Data Home Medications Medication Instructions Recorded Confirmed levothyroxine 112 mcg tablet 150 mcg PO DAILY 02/28/19 09/27/20 (Synthroid) glipizide 5 mg tablet 2.5 mg PO BID 09/27/20 09/27/20 meloxicam 7.5 mg tablet 7.5 mg PO DAILY PRN 09/27/20 09/27/20 Allergies Allergy/AdvReac Type Severity Reaction Status Date / Time No Known Allergies Allergy Unverified 09/27/20 14:30 General Stated Complaint: HeadInjury GARRICK: 3 Review of Systems Constitutional Constitutional: Denies daytime sleepiness, Denies frequent falls, Denies headache(s) and Denies weakness Eyes Eyes: Denies blurry vision, Denies change in vision and Denies loss of vision ENT Ears, Nose, Mouth, and Throat: Denies dizziness, Denies facial pain, Denies headache(s) and Denies neck pain Cardiovascular Cardiovascular: Denies chest pain, Denies syncope and Denies dyspnea Respiratory Respiratory: Denies cough and Denies dyspnea Gastrointestinal Gastrointestinal: Denies abdominal pain, Denies nausea and Denies vomiting Musculoskeletal Musculoskeletal: Reports back pain, Reports arthralgias, Denies neck pain, Denies numbness and Denies tingling Integumentary/Breasts Skin/Breast: Denies unusual bruising and Reports wounds Neurologic Neurologic: Denies confusion, Denies dizziness, Denies syncope, Denies frequent falls, Denies headache(s), Denies lack of coordination, Denies localized weakness, Denies loss of vision, Denies numbness, Denies sensory deficit, Denies tingling and Denies weakness Psychiatric Psychiatric: Denies confusion PFSH All Active Problems (Updated 05/07/22 @ 22:53 by Andre Bean NP) Fall (Acute) Head injury due to trauma (Acute) Laceration of scalp (Acute) Diplopia (Acute) Memory deficit (Acute) Hand paresthesia (Acute) Stroke (Chronic) Acute CVA (cerebrovascular accident) (Acute) Transient ischemic attack (Acute) Diabetes type 2, controlled (Acute) Ataxia of right upper extremity (Acute) Fracture of proximal humerus (Acute 05/01/19) Medical History (Updated 05/07/22 @ 22:53 by Andre Bean NP) Hypothyroidism Social History Smoking/Tobacco Use Status: Never Smoking risk assessment performed?: Yes Alcohol Intake: never Drug use: Never Substance use type: does not use Household members: spouse Current gender identity: female What is your relationship status?: Panel score (0-1 are the most socially isolated patients): 1 Do you feel safe at home: Yes Do you feel safe in your relationship?: Yes Exam Const General: cooperative, healthy appearing, no acute distress and well groomed Orientation: alert and awake HENOR Head: no Okeefe's sign, hematoma vertex, laceration vertex and no raccoon eyes Ears: hearing grossly normal bilaterally and TM's normal bilaterally Mouth: oral mucosae normal and moist mucous membranes Throat: posterior oropharynx normal Eyes Visual Gonzalez: normal visual gonzalez by confrontation Alignment and Position: alignment normal Periorbital: periorbital findings normal Eyelids: eyelids normal Sclera: sclerae normal Pupils: PERRL EOM: EOM intact bilaterally Neck Neck: normal visual inspection and full ROM Resp Effort & Inspection: normal respiratory effort and able to speak in complete sentences Auscultation: clear to auscultation bilaterally Cardio Rate: regular rate Rhythm: regular rhythm Heart Sounds: S1 normal and S2 normal Neuro General: patient alert, patient awake, patient oriented x3, tone normal, moves all extremities, CN's II-XI intact bilaterally and not confused Cognition: normal cognition Speech: speech normal Motor: muscle tone normal throughout, no pronator drift, no movement abnormalities noted and no fasciculations Sensory Exam: no sensory deficits noted Course Vital Signs Vital signs: Vital Signs Temperature 37.0 C 05/07/22 19:51 Pulse 98 H 05/07/22 19:51 Respiratory Rate 20 05/07/22 19:51 Blood Pressure 162/75 H 05/07/22 19:51 Pulse Oximetry 98 05/07/22 19:51 Temperature 37.0 C 05/07/22 19:51 Temperature Source Temporal Artery Scan 05/07/22 19:51 Pulse 98 H 05/07/22 19:51 Respiratory Rate 20 05/07/22 19:51 Respiratory Effort 05/07/22 20:05 Respiratory Depth Normal 05/07/22 20:05 Respiratory Pattern Normal 05/07/22 20:05 Blood Pressure 162/75 H 05/07/22 19:51 Blood Pressure Position Sitting 05/07/22 19:51 Pulse Oximetry 98 05/07/22 19:51 Oxygen Delivery Method Room Air 05/07/22 19:51 Oxygen Flow Rate 0 05/07/22 19:51 Pain Level 0 05/07/22 19:51 Procedures Laceration Laceration 1: Site: scalp Size (cm): 4 Description: irregular and clean Depth: simple, single layer Local Anesthetic: Lidocaine 2% and with Epi Amount of anesthesia used (mL): 5 Pre-repair: wound explored, irrigated extensively and deep structures intact Skin layer closed with: other (prolene) Size (cm): 4-0 and other (dermabond) Number of sutures: 4 Technique: simple, interrupted
--- NOTE | 2022-05-07 21:20 | DI.VRAD_ITS ---
PROCEDURE INFORMATION: Exam: XR Left Ribs Exam date and time: 05/07/2022 8:56 PM Age: 81 years old Clinical indication: Injury or trauma; Fall; Blunt trauma (contusions or hematomas); Rib area, left side; Patient HX: Trauma posterior fifth sixth rib pain TECHNIQUE: Imaging protocol: Radiologic exam of the Left ribs. Views: 2 views. COMPARISON: CR XR CHEST 2V PA LATERAL 07/03/2019 1:19 PM FINDINGS: Bones/joints: There are skeletal degenerative changes. There is a healed fracture deformity to the left humeral head. With regards to the ribs, no definite rib fracture is appreciated, particularly on the left in the region of the patient's BB marker. 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 If rib fracture remains a concern, CT scan is recommended. Soft tissues: No unusual soft tissue calcifications. IMPRESSION: 1. With regards to the ribs, no definite rib fracture is appreciated, particularly on the left in the region of the patient's BB marker. 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 If rib fracture remains a concern, CT scan is recommended. 2. Other findings/details as above. PROCEDURE INFORMATION: Exam: XR Chest Exam date and time: 05/07/2022 8:56 PM Age: 81 years old Clinical indication: Injury or trauma; Fall; Blunt trauma (contusions or hematomas); Rib area, left side; Patient HX: Trauma posterior fifth sixth rib pain TECHNIQUE: Imaging protocol: Radiologic exam of the chest. Views: 2 views. COMPARISON: CR XR CHEST 2V PA LATERAL 07/03/2019 1:19 PM FINDINGS: Lungs: Unremarkable. No consolidation. Pleural spaces: Unremarkable. No pleural effusion. No pneumothorax. Heart/Mediastinum: The mediastinum is measuring widened but unchanged from prior examination. Tracheal deviation to the right remains seen. No cardiomegaly. Bones/joints: There are skeletal degenerative changes. There is a healed fracture deformity to the left humeral head. With regards to the ribs, no definite rib fracture is appreciated, particularly in the region of the patient's BB marker. 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 If rib fracture remains a concern, CT scan is recommended. Other: There is a large hiatal hernia containing an air-fluid level. This was also present on prior examination. Correlation with any concern for obstructive process associated with this hernia is recommended. IMPRESSION: 1.With regards to the ribs, no definite rib fracture is appreciated, particularly on the left in the region of the patient's BB marker. 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 If rib fracture remains a concern, CT scan is recommended. 2.There is a large hiatal hernia containing an air-fluid level. This was also present on prior examination. Correlation with any concern for obstructive process associated with this hernia is recommended. Other findings/details as above. Dictated and Authenticated by: Sarah Cox MD. Ordering:MAURA Powell MD
== END 2022-05-07 23:12 | disposition home or self-care (01) ==
PROVIDERS: Emergency Provider Nurse Practitioner Family; PCP Physician Assistant
DX: S01.01XA Laceration without foreign body of scalp, initial encounter (principal); W18.39XA Other fall on same level, initial encounter; M54.9 Dorsalgia, unspecified; R07.89 Other chest pain
CPT/HCPCS: 12002; 99284; 70450; 71046; 71100; 72125; 99283

== ENCOUNTER 2022-06-15 19:02 | Outpatient (REF) | payer MEDICARE, OTHER, SELFPAY ==
[2022-06-15 19:13] LABS: HCT 37.5 % (36.0-46.0); HGB 11.9 g/dL (11.2-15.7); MCH 29.3 pg (27.0-33.0); MCHC 31.7 % (32.0-36.0); MCV 92 fL (80-95); MPV 10.9 fL (8.0-11.0); Platelet Count 155 10^3/uL (130-400); RBC 4.06 10^6/uL (3.93-5.22); RDW-SD 44.2 fL; WBC 5.13 10^3/uL (4.4-10.8)
== END 2022-06-15 19:03 | disposition home or self-care (01) ==
LOC: NCHCN 19:02
PROVIDERS: PCP Physician Assistant; Visit Provider Physician Assistant
DX: E11.65 Type 2 diabetes mellitus with hyperglycemia (principal)
CPT/HCPCS: 85027

== ENCOUNTER 2023-07-18 15:47 | Outpatient (REF) | payer MEDICARE, OTHER, SELFPAY ==
[2023-07-18 20:29] LABS: Abs Immature Grans 0.01 10^3/uL (0.0-0.06); Absolute Basophil Count 0.05 10^3/uL (0.0-0.2); Absolute Eosinophil Count 0.22 10^3/uL (0.0-0.7); Absolute Lymphocyte Count 1.43 10^3/uL (1.2-3.4); Absolute Monocyte Count 0.44 10^3/uL (0.1-0.8); Absolute Neutrophil Count 2.89 10^3/uL (1.2-6.7); Eosinophils % 4.4; Immature Grans % 0.2; Lymphocytes % 28.4; MCH 29.3 pg (27.0-33.0); MCHC 32.4 % (32.0-36.0); MCV 91 fL (80-95); MPV 11.1 fL (8.0-11.0); Monocytes % 8.7; Neutrophils % 57.3; Platelet Count 142 10^3/uL (130-400); RBC 4.09 10^6/uL (3.93-5.22); RDW 13.2 % (11.7-14.6); RDW-SD 43.3 fL; WBC 5.04 10^3/uL (4.4-10.8)
[2023-07-18 20:46] LABS: ALT 21 U/L (14-59); AST 18 U/L (15-37); Albumin 3.8 g/dL (3.4-5.0); Alkaline Phosphatase 59 U/L (46-116); BUN 37 mg/dL (7-18); Bilirubin, Total 0.5 mg/dL (0.2-1.0); CREATININE 1.1 mg/dL (0.55-1.02); Chloride 103 mmol/L (98-107); Estimated GFR 49.86 (mL/min/1.73m2); Glucose 209 mg/dL (74-106); Potassium 4.6 mmol/L (3.5-5.1); Sodium 140 mmol/L (136-145); Total Protein 7.9 g/dL (6.4-8.2)
[2023-07-18 20:56] LABS: Hemoglobin A1C 10.8 % (<5.7)
[2023-07-18 21:03] LABS: Vitamin D 25 Total 33.4 ng/mL (30-100)
[2023-07-18 22:25] LABS: FREE T4 1.06 ng/dL (0.76-1.46)
== END 2023-07-18 15:48 | disposition home or self-care (01) ==
LOC: NCHCN 15:47
PROVIDERS: PCP Physician Assistant; Referring Provider Physician Assistant; Visit Provider Physician Assistant
DX: E11.65 Type 2 diabetes mellitus with hyperglycemia (principal); D64.9 Anemia, unspecified; E55.9 Vitamin D deficiency, unspecified
CPT/HCPCS: 80053; 82306; 83036; 84439; 84443; 85025; 87086

== ENCOUNTER 2023-08-17 11:17 | Outpatient (REF) | payer MEDICARE, OTHER, SELFPAY ==
[2023-08-17 19:30] LABS: TSH (W/Ref FT4) 2.57 uIU/mL (0.36-3.74)
== END 2023-08-17 11:18 | disposition home or self-care (01) ==
LOC: NCHCN 11:17
PROVIDERS: PCP Physician Assistant; Referring Provider Physician Assistant; Visit Provider Physician Assistant
DX: E03.9 Hypothyroidism, unspecified (principal)
CPT/HCPCS: 84443

== ENCOUNTER 2023-10-19 14:12 | Outpatient (REF) | payer MEDICARE, OTHER, SELFPAY ==
[2023-10-19 19:58] LABS: Hemoglobin A1C 8.5 % (<5.7)
== END 2023-10-19 14:13 | disposition home or self-care (01) ==
LOC: NCHCN 14:12
PROVIDERS: PCP Physician Assistant; Visit Provider Physician Assistant
DX: E11.65 Type 2 diabetes mellitus with hyperglycemia (principal)
CPT/HCPCS: 83036

== ENCOUNTER 2024-03-13 17:41 | Outpatient (REF) | payer MEDICARE, OTHER, SELFPAY | END 2024-03-13 17:42 | disposition home or self-care (01) | LOC: NCHCN 17:41 | PROVIDERS: PCP Physician Assistant; Visit Provider Physician Assistant | DX: N39.0 Urinary tract infection, site not specified (principal); R82.89 Other abnormal findings on cytological and histological examination of urine | CPT/HCPCS: 87086 ==

== ENCOUNTER 2024-08-26 15:46 | Outpatient (REF) | payer MEDICARE, OTHER, SELFPAY ==
[2024-08-26 21:00] LABS: ALT 18 U/L (14-59); AST 20 U/L (15-37); Albumin 3.5 g/dL (3.4-5.0); Alkaline Phosphatase 55 U/L (46-116); Anion Gap 7.5 mmol/L (3-11); BUN 32 mg/dL (7-18); Bilirubin, Total 0.3 mg/dL (0.2-1.0); CO2 29.5 mmol/L (21.0-32.0); CREATININE 1.3 mg/dL (0.55-1.02); Calcium 9.4 mg/dL (8.5-10.1); Chloride 107 mmol/L (98-107); Estimated GFR 40.55 (mL/min/1.73m2); Glucose 185 mg/dL (74-106); Potassium 4.1 mmol/L (3.5-5.1); Sodium 144 mmol/L (136-145); TSH (W/Ref FT4) 16.81 uIU/mL (0.36-3.74); Total Protein 7.4 g/dL (6.4-8.2)
== END 2024-08-26 15:47 | disposition home or self-care (01) ==
LOC: NCHCN 15:46
PROVIDERS: PCP Physician Assistant; Visit Provider Physician Assistant
DX: E11.65 Type 2 diabetes mellitus with hyperglycemia (principal); E03.9 Hypothyroidism, unspecified
CPT/HCPCS: 80053; 84439; 84443

== ENCOUNTER 2024-08-27 14:12 | Outpatient (REF) | payer MEDICARE, OTHER, SELFPAY ==
[2024-08-27 20:35] LABS: COMMENT (LAB VIEW ONLY) 113.59 mg/dL
[2024-08-27 20:37] LABS: Microalb ug/mg Crea 277.5 ug/mg Cr
== END 2024-08-27 14:13 | disposition home or self-care (01) ==
LOC: NCHCN 14:12
PROVIDERS: PCP Physician Assistant; Visit Provider Physician Assistant
DX: E11.65 Type 2 diabetes mellitus with hyperglycemia (principal)
CPT/HCPCS: 82043; 82570

== ENCOUNTER 2024-10-06 14:21 | Outpatient (REF) | payer MEDICARE, OTHER, SELFPAY ==
[2024-10-06 19:56] LABS: TSH (W/Ref FT4) 36.87 uIU/mL (0.36-3.74)
== END 2024-10-06 14:22 | disposition home or self-care (01) ==
LOC: NCHCN 14:21
PROVIDERS: PCP Physician Assistant; Visit Provider Physician Assistant
DX: E03.9 Hypothyroidism, unspecified (principal)
CPT/HCPCS: 84439; 84443

== ENCOUNTER 2025-04-09 17:33 | Outpatient (REF) | payer MEDICARE, OTHER, SELFPAY ==
[2025-04-09 19:09] LABS: HCT 34.7 % (36.0-46.0); HGB 11.1 g/dL (11.2-15.7); MCH 28.7 pg (27.0-33.0); MCHC 32.0 % (32.0-36.0); MCV 90 fL (80-95); MPV 11.0 fL (8.0-11.0); Platelet Count 146 10^3/uL (130-400); RBC 3.87 10^6/uL (3.93-5.22); RDW 13.1 % (11.7-14.6); RDW-SD 42.7 fL; WBC 4.47 10^3/uL (4.4-10.8)
[2025-04-09 19:28] LABS: ALT 16 U/L (14-59); AST 18 U/L (15-37); Albumin 3.7 g/dL (3.4-5.0); Alkaline Phosphatase 58 U/L (46-116); Anion Gap 7.7 mmol/L (3-11); BUN 33 mg/dL (7-18); Bilirubin, Total 0.3 mg/dL (0.2-1.0); CO2 29.3 mmol/L (21.0-32.0); Calcium 9.4 mg/dL (8.5-10.1); Chloride 103 mmol/L (98-107); Glucose 152 mg/dL (74-106); Potassium 4.4 mmol/L (3.5-5.1); Sodium 140 mmol/L (136-145); TSH (W/Ref FT4) 0.23 uIU/mL (0.36-3.74); Total Protein 8.0 g/dL (6.4-8.2)
[2025-04-14 13:18] LABS: 1,25-Dihydroxyvitamin D 16 pg/mL (18-78)
== END 2025-04-09 17:34 | disposition home or self-care (01) ==
LOC: NCHCN 17:33
PROVIDERS: PCP Physician Assistant; Visit Provider Physician Assistant
DX: E55.9 Vitamin D deficiency, unspecified (principal); E11.65 Type 2 diabetes mellitus with hyperglycemia; E03.9 Hypothyroidism, unspecified
CPT/HCPCS: 80053; 85027; 82652; 84439; 84443